=== PATIENT | male | born 1955 | race Caucasian/White ===

== ENCOUNTER 2016-11-07 07:46 | Inpatient (IN) | payer BC, OTHER ==
--- NOTE | 2016-11-07 07:55 | PDOC ---
History of Present Illness - General Chief Complaint: Shortness of Breath Stated Complaint: SOB Time Seen by Provider: 11/07/16 07:55 History Source: Patient Exam Limitations: No Limitations - History of Present Illness Initial Comments: 11/07/16 07:55 CHIEF COMPLAINT: Shortness of breath HISTORY OF PRESENT ILLNESS: This is a 61-year-old male with a history of atrial fibrillation (on Xarelto), hypertension, szh-yxoqcqq-mnobpbony diabetes, and prior Vfib arrest. He denies history of CHF, but is taking Lasix 40mg bid and has an AICD. He presents ambulatory to the ED with shortness of breath. He reports that he has been sick with cough and "cold" for one week. This morning, he felt acutely more short of breath at rest. He has been unable to lay flat. He denies chest pain. Vital signs on arrival are notable for RR 30, BP 188/133, HR 100, SpO2 82% on RA. PCP was formerly Dr. Alvarado and professor of visual arts was Dr. Martino; he reports that he can no longer see them because his insurance changed and does not currently follow with anyone. Patient is a nonsmoker. REVIEW OF SYSTEMS: GENERAL/CONSTITUTIONAL: Chills, malaise. No weakness. No weight change. HEAD, EYES, EARS, NOSE AND THROAT: No change in vision. No ear pain or discharge. No sore throat. CARDIOVASCULAR: No chest pain or palpitations. RESPIRATORY: See HPI. GASTROINTESTINAL: No nausea, vomiting, diarrhea or constipation. GENITOURINARY: No dysuria, frequency, or change in urination. MUSCULOSKELETAL: No joint or muscle swelling or pain. No neck or back pain. SKIN: No rash or easy bruising. NEUROLOGIC: No headache, vertigo, loss of consciousness, or loss of sensation. PSYCHIATRIC: No depression or anxiety. ENDOCRINE: Increased thirst. No abnormal weight change. HEMATOLOGIC/LYMPHATIC: No anemia, easy bleeding, or history of blood clots. ALLERGIC/IMMUNOLOGIC: No hives or skin allergy. No latex allergy. PHYSICAL EXAM: GENERAL: The patient is awake, alert, and fully oriented, in respiratory distress. HEAD: Normal with no signs of trauma. ENT: Pupils equal, round and reactive to light, extraocular movements intact, sclera anicteric, conjunctiva clear. Neck supple. LUNGS: Rales to mid-lung pace. Tachypneic, speaking half sentences. Using accessory muscles. CV: Tachycardic, irregular rhythm. S1/S2, no MRG. Cap refill < 2 sec. ABDOMEN: Soft, non-distended, non-tender. EXTREMITIES: Normal range of motion. 2+ pitting LE edema bilaterally. NEUROLOGICAL: Normal speech. CN II-XII grossly intact. PSYCH: Normal mood, normal affect. SKIN: Warm, dry, normal turgor, no rashes or lesions noted. Past History - Past Medical History Allergies/Adverse Reactions: Allergies Allergy/AdvReac Type Severity Reaction Status Date / Time No Known Allergies Allergy Verified 11/07/16 07:51 Cardiac Disorders: Yes (A FIB) Diabetes: Yes HTN: Yes - Surgical History Abdominal Surgery: Yes (HERNIA) Cardiac Surgery: Yes (DEFIBRILLATOR) - Psycho/Social/Smoking Cessation Hx Suicidal Ideation: No Smoking History: Never smoked Hx Alcohol Use: No Drug/Substance Use Hx: No *Physical Exam - Vital Signs Last Vital Signs Temp Pulse Resp BP Pulse Ox 97.5 F L 100 H 20 188/133 11/07/16 07:49 11/07/16 07:49 11/07/16 07:49 11/07/16 07:49 ED Treatment Course - LABORATORY CBC & Chemistry Diagram: 11/07/16 08:20 11/07/16 08:20 Medical Decision Making - Medical Decision Making 11/07/16 08:34 A/P: 61 year old male in respiratory distress. Suspect decompensated CHF, possible underlying URI. Low suspicion for PE as patient is on Xarelto and taking it as prescribed. 1. Placed on 4L O2 via nasal cannula with no improvement; now on NRB with SpO2 94%. May need NIPPV if not improving. 2. Stat EKG obtained showing Afib with RVR at 133bpm; will give Cardizem 5mg IVP , additional doses as needed 3. Stat portable CXR obtained showing cardiomeglay and extensive pulmonary vascular congestion; nitro 1" paste applied, 40mg Lasix IVP given (patient took 40mg po this morning) 4. Cardiac labs 5. Flu swab 6. Rectal temp 11/07/16 08:42 WBC 12.8 Flu neg Trop <0.02 BNP 2623 Afebrile rectally Patient is feeling much better; has diuresed 750 mL. Resp rate 22, speaking in full sentences, satting 100% on NRB. Will request tele admission. Discussed with Dr. Alvarado and she is no longer able to follow him; will request service admission. Discussed with Dr. Singh who will follow the patient. *DC/Admit/Observation/Transfer Diagnosis at time of Disposition: Respiratory decompensation Acute exacerbation of CHF (congestive heart failure) Qualifiers: Congestive heart failure type: unspecified congestive heart failure type Qualified Code(s): I50.9 - Heart failure, unspecified - Discharge Dispostion Admit: Yes
[2016-11-07 07:56] VITALS: BMI 48.8
[2016-11-07] MEDS ORDERED: FUROSEMIDE 40 MG/4 ML INJECTABLE VIAL IVPUSH ONE (08:20)
[2016-11-07] MEDS ORDERED: FUROSEMIDE 40 MG/4 ML INJECTABLE VIAL ONE (08:24)
[2016-11-07] MEDS ORDERED: dilTIAZem HCL 50 MG/10 ML - 10 ML VIAL IVPUSH ONE (08:25)
[2016-11-07] MEDS ORDERED: NITROGLYCERIN 2% OINTMENT - 1GM PACKET TD ONE (08:26)
[2016-11-07] MEDS ORDERED: dilTIAZem HCL 125 MG/25 ML - 25 ML VIAL ONE (08:27)
[2016-11-07 08:30] LABS: BASOPHIL 0.6 % (0-2.0); EOSINOPHIL 0.6 % (0-4.5); MCH 29.6 pg (25.7-33.7); MCHC 32.3 g/dl (32.0-35.9); MEAN CELL VOLUME 91.7 fl (80-96); MEAN PLT VOLUME 8.8 fl (7.5-11.1); NEUTROPHILS 84.5 % (42.8-82.8); PLATELET COUNT 183 K/MM3 (134-434); RDW 16.4 % (11.9-15.9); WHITE BLOOD COUNT 12.8 K/mm3 (4.0-10.0)
[2016-11-07 08:45] LABS: INR 1.75 (0.82-1.09); PROTHROMBIN TIME (PATIENT) 19.5 SEC (9.98-11.88)
--- NOTE | 2016-11-07 08:47 | EKG ---
Test Reason : Blood Pressure : / mmHG Vent. Rate : 133 BPM Atrial Rate : 131 BPM P-R Int : 000 ms QRS Dur : 112 ms QT Int : 338 ms P-R-T Axes : 000 -10 009 degrees QTc Int : 503 ms POOR DATA QUALITY, INTERPRETATION MAY BE ADVERSELY AFFECTED ATRIAL FIBRILLATION WITH RAPID VENTRICULAR RESPONSE WITH PREMATURE VENTRICULAR OR ABERRANTLY CONDUCTED COMPLEXES POSSIBLE ANTERIOR INFARCT , AGE UNDETERMINED ABNORMAL ECG NO PREVIOUS ECGS AVAILABLE Confirmed by DAGOBERTO BUENO, PANCHO ([id number]) on 11/07/2016 8:47:14 AM Referred By: Confirmed By:PANCHO ARENAS MD
--- NOTE | 2016-11-07 08:54 | PDOC ---
*Physical Exam - Vital Signs Last Vital Signs Temp Pulse Resp BP Pulse Ox 97.5 F L 100 H 20 188/133 82 L 11/07/16 07:49 11/07/16 07:49 11/07/16 07:49 11/07/16 07:49 11/07/16 07:49 - Physical Exam Comments: 11/07/16 08:52 MIDLEVEL NOTE Pt seen by Midlevel Provider under my direct supervision. Pt interviewed and examined. Ancillary studies reviewed. I agree with plan as outlined by Midlevel Provider. This is a 61-year-old male with a history of atrial fibrillation (on Xarelto), hypertension, morbid obesity, wip-ulybukw-jkmptuzlj diabetes. He denies history of CHF, but is taking Lasix 40mg bid and has an AICD Patient arrives in respiratory distress, diaphoretic, atrial fibrillation with a rapid ventricular response EKG Atrial fibrillation with rapid ventricular response 130 to 135 Nonspecific intraventricular conduction delay with a QRS duration of 112 Prolonged QT with a QTC of 503 There is poor R wave progression across the anterior precordium There are other diffuse nonspecific ST-T wave abnormalities There is no old EKG available for comparison To my exam Patient arrives diaphoretic and in respiratory distress He is on 100% nonrebreather There are diffuse rales in all lung pace Heart is irregularly irregular with a ventricular response of 130s There is 3-4+ pitting pedal edema bilaterally Patient was given IV Lasix, nitroglycerin paste, and diltiazem for rate control Starting to feel a little better at this time Chest l-env-buauwayy heart, severe CHF 11/07/16 10:06 Laboratory Results - last 24 hr 11/07/16 11/07/16 11/07/16 08:20 08:20 08:20 WBC 12.8 H RBC 5.26 Hgb 15.6 Hct 48.2 MCV 91.7 MCHC 32.3 RDW 16.4 H Plt Count 183 MPV 8.8 Neutrophils % 84.5 H Lymphocytes % 8.6 Monocytes % 5.7 Eosinophils % 0.6 Basophils % 0.6 INR 1.75 H Sodium 142 Potassium 4.2 Chloride 104 Carbon Dioxide 26 Anion Gap 12 BUN 24 H Creatinine 1.0 Creat Clearance w eGFR > 60 Random Glucose 205 H Calcium 9.0 Total Bilirubin 0.7 AST 31 ALT 50 Alkaline Phosphatase 70 Creatine Kinase 77 Troponin I 0.02 B-Natriuretic Peptide 2623.96 H Total Protein 7.1 Albumin 3.8 Impression- Acute CHF with respiratory decompensation, atrial fibrillation with rapid ventricular response ED Treatment Course - LABORATORY CBC & Chemistry Diagram: 11/08/16 05:35 11/08/16 05:35 - ADDITIONAL ORDERS Additional order review: 11/07/16 08:00 Influenza Types A,B Antigen (ELIZA) - Final Nasopharyngeal Swab - Final 11/07/16 08:20 RBC 5.26 MCV 91.7 MCHC 32.3 RDW 16.4 H MPV 8.8 Neutrophils % 84.5 H Lymphocytes % 8.6 Monocytes % 5.7 Eosinophils % 0.6 Basophils % 0.6 - Medications Given in the ED: ED Medications Discontinued Medications Generic Name Dose Route Start Last Admin Trade Name Freq PRN Reason Stop Dose Admin Diltiazem HCl 5 mg 11/07/16 08:25 11/07/16 08:37 Cardizem Injection - IVPUSH 11/07/16 08:26 5 mg ONCE ONE Administration Furosemide 40 mg 11/07/16 08:20 11/07/16 08:37 Lasix Injection - IVPUSH 11/07/16 08:21 40 mg ONCE ONE Administration Nitroglycerin 1 inch 11/07/16 08:26 11/07/16 08:37 Nitro-Bid 2% Paste - TD 11/07/16 08:27 1 inch ONCE ONE Administration *DC/Admit/Observation/Transfer Diagnosis at time of Disposition: Respiratory decompensation, Atrial fibrillation with RVR Acute exacerbation of CHF (congestive heart failure) Qualifiers: Congestive heart failure type: unspecified congestive heart failure type Qualified Code(s): I50.9 - Heart failure, unspecified - Discharge Dispostion Admit: Yes
[2016-11-07 08:55] LABS: ALBUMIN 3.8 g/dl (3.4-5.0); ANION GAP 12 (8-16); BILIRUBIN,TOTAL 0.7 mg/dL (0.2-1.0); CO2 26 mmol/L (21-32); GLUCOSE,RANDOM 205 mg/dL (74-106); SGOT/AST 31 U/L (15-37); SGPT/ALT 50 U/L (12-78); TOT PROT 7.1 g/dl (6.4-8.2)
[2016-11-07 08:58] LABS: ALK PHOS 70 U/L (45-117); TROPONIN I 0.02 ng/ml (0.00-0.05)
--- NOTE | 2016-11-07 09:30 | HP ---
CHIEF COMPLAINT: Shortness of breath HISTORY OF PRESENT ILLNESS: This is a 61-year-old male with PMHx of atrial fibrillation (on Xarelto), HTN, ufo-ueeosvh-mjtpvtfft diabetes, and prior Vfib arrest s/p AICD 2 years ago.He denies having any history of CHF but patient is on Lasix 40mg bid at home. He started having symptoms last night where he could not lie down flat , at 4am he fell asleep for 2 hours around 6 am when he woke up ,felt short of breath, and has been drinking lots of water and had salty food at home .He presents ambulatory to the ED with shortness of breath. And also reports that he has been sick with cough and "cold" for one week. He has been unable to lay flat. He denies chest pain. Uses cpap at home since has hx of sleep apnea. CABRERA and at rest. PCP was formerly Dr. Alvarado and master scheduler was Dr. Martino; he reports that he can no longer see them because his insurance changed and does not currently follow with anyone. ER course was notable for: (1)Given IV cardizem (2)Given Lasix 40mg IV (3)82% on Room air Past Medical History Allergies/Adverse Reactions: Allergies Allergy/AdvReac Type Severity Reaction Status Date / Time No Known Allergies Allergy Verified 11/07/16 07:51 Cardiac Disorders: Yes (A FIB) Diabetes: Yes HTN: Yes - Surgical History Abdominal Surgery: Yes (HERNIA) Cardiac Surgery: Yes (DEFIBRILLATOR) - Psycho/Social/Smoking Cessation Hx Suicidal Ideation: No Smoking History: Never smoked Hx Alcohol Use: No Drug/Substance Use Hx: No Family History: No family hx of any disease HOME MEDICATIONS: Medication Instructions Recorded Diltiazem Cd [Cardizem Cd -] 180 mg PO DAILY 11/07/16 Empagliflozin [Jardiance] 10 mg PO DAILY 11/07/16 Exenatide Microspheres [Bydureon] 2 mg SQ Q7D 11/07/16 Furosemide [Lasix] 40 mg PO BID 11/07/16 Magnesium Oxide [Magnesium] 400 mg PO DAILY 11/07/16 Metformin HCl [Metformin HCl ER] 1,000 mg PO BID 11/07/16 Metoprolol Succinate [Toprol Xl] 100 mg PO BID 11/07/16 Olmesartan Medoxomil [Benicar (Nf)] 40 mg PO DAILY 11/07/16 Potassium Chloride [K-Dur -] 10 meq PO BID 11/07/16 Rivaroxaban [Xarelto -] 20 mg PO DAILY 11/07/16 REVIEW OF SYSTEMS CONSTITUTIONAL: Absent: fever, chills, diaphoresis, generalized weakness, malaise, loss of appetite, weight change HEENT: Absent: rhinorrhea, nasal congestion, throat pain, throat swelling, difficulty swallowing, mouth swelling, ear pain, eye pain, visual changes CARDIOVASCULAR: Absent: chest pain, syncope, palpitations, irregular heart rate , lightheadedness, peripheral edema RESPIRATORY: shortness of breath, dyspnea with exertion, orthopnea, Absent: cough, wheezing, stridor, hemoptysis GASTROINTESTINAL:Absent: abdominal pain, abdominal distension, nausea, vomiting , diarrhea, constipation, melena, hematochezia GENITOURINARY: Absent: dysuria, frequency, urgency, hesitancy, hematuria, flank pain, genital pain MUSCULOSKELETAL: Absent: myalgia, arthralgia, joint swelling, back pain, neck pain SKIN: Absent: rash, itching, pallor HEMATOLOGIC/IMMUNOLOGIC: Absent: easy bleeding, easy bruising, lymphadenopathy, frequent infections ENDOCRINE:Absent: unexplained weight gain, unexplained weight loss, heat intolerance, cold intolerance NEUROLOGIC: Absent: headache, focal weakness or paresthesias, dizziness, unsteady gait, seizure, mental status changes, bladder or bowel incontinence PSYCHIATRIC: Absent: anxiety, depression, suicidal or homicidal ideation, hallucinations. EXTREMITY: Lower extremity edema PHYSICAL EXAMINATION Vital Signs - 24 hr 11/07/16 07:49 Temperature 97.5 F L Pulse Rate 100 H Respiratory 20 Rate Blood Pressure 188/133 O2 Sat by Pulse 82 L Oximetry (%) GENERAL: Awake, alert, and fully oriented, in no acute distress. HEAD: Normal with no signs of trauma. EYES: Pupils equal, round and reactive to light, extraocular movements intact, sclera anicteric, conjunctiva clear. No lid lag. EARS, NOSE, THROAT: Ears normal, nares patent, oropharynx clear without exudates. Moist mucous membranes. NECK: Normal range of motion, supple without lymphadenopathy, JVD, or masses. LUNGS: decereased Breath sounds at the basis otherwise clear to auscultation bilaterally. No wheezes, and no crackles. No accessory muscle use. HEART: Irregularly- Irregular , rate of 100 , normal S1 and S2 without murmur , rub or gallop. ABDOMEN: Soft, nontender, not distended, normoactive bowel sounds, no guarding, no rebound, no masses. No hepatomegaly or splenomegaly. MUSCULOSKELETAL: Normal range of motion at all joints. No bony deformities or tenderness. No CVA tenderness. UPPER EXTREMITIES: 2+ pulses, warm, well-perfused. No cyanosis. No clubbing. Cap refill <2 seconds. No peripheral edema. LOWER EXTREMITIES: 2+ pulses, warm, well-perfused. No calf tenderness. positive for edema. NEUROLOGICAL: Cranial nerves II-XII intact. Normal speech. Normal gait. PSYCHIATRIC: Cooperative. Good eye contact. Appropriate mood and affect. SKIN: Warm, dry, normal turgor, no rashes or lesions noted. Laboratory Results - last 24 hr 11/07/16 11/07/16 11/07/16 08:20 08:20 08:20 WBC 12.8 H RBC 5.26 Hgb 15.6 Hct 48.2 MCV 91.7 MCHC 32.3 RDW 16.4 H Plt Count 183 MPV 8.8 Neutrophils % 84.5 H Lymphocytes % 8.6 Monocytes % 5.7 Eosinophils % 0.6 Basophils % 0.6 INR 1.75 H Sodium 142 Potassium 4.2 Chloride 104 Carbon Dioxide 26 Anion Gap 12 BUN 24 H Creatinine 1.0 Creat Clearance w eGFR > 60 Random Glucose 205 H Calcium 9.0 Total Bilirubin 0.7 AST 31 ALT 50 Alkaline Phosphatase 70 Creatine Kinase 77 Troponin I 0.02 B-Natriuretic Peptide 2623.96 H Total Protein 7.1 Albumin 3.8 EKG: Afib with RVR at 133bpm Chest z-dle-roupgbwa heart, Pulmonary edema ASSESSMENT/PLAN: Patient is a 61 year old male presented to ED. in acute respiratory distress, with hx of URI. Presented with Acute congestive Heart failure , patient was found to be in AVR with rate of 133 given IV cardizam and patient is on Xarelto at home for Afib. # Acute CHF exacerbation will get echo, cardio consult , CE q8x2 more set, EKG in am. LAsix 40mg IV bid. Admit to telemetry. # Acute Hypoxia , patient is hypoxic off oxygen, will place on 4 liter oxygen , if patient doesn't improve might need CTA of the chest, doubt PE, will get duplex of LOwer extremities r/o DVT # Afib with RVR on cardizem and BB will continue, will get TSH level as well. # T2DM Sliding scale with coverage. #Lower extremity edema B/L on IV lasix , duplex of LE r/o DVT DVT px; Xarelto Problem List - Problem (1) Acute exacerbation of CHF (congestive heart failure) Code(s): I50.9 - HEART FAILURE, UNSPECIFIED Qualifiers: Congestive heart failure type: unspecified congestive heart failure type Qualified Code(s): I50.9 - Heart failure, unspecified (2) Respiratory decompensation Code(s): J98.9 - RESPIRATORY DISORDER, UNSPECIFIED (3) Atrial fibrillation with RVR Code(s): I48.91 - UNSPECIFIED ATRIAL FIBRILLATION (4) Hypoxia Code(s): R09.02 - HYPOXEMIA (5) T2DM (type 2 diabetes mellitus) Code(s): E11.9 - TYPE 2 DIABETES MELLITUS WITHOUT COMPLICATIONS Visit type - Emergency Visit Emergency Visit: Yes ED Registration Date: 11/07/16 Care time: The patient presented to the Emergency Department on the above date and was hospitalized for further evaluation of their emergent condition. - New Patient This patient is new to me today: Yes Date on this admission: 11/07/16 - Critical Care Critical Care patient: No
[2016-11-07] MEDS: FUROSEMIDE 40 MG/4 ML INJECTABLE VIAL IVPUSH SCH (14:12)
[2016-11-07 16:02] LABS: TROPONIN I 0.02 ng/ml (0.00-0.05)
[2016-11-07] MEDS: INSULIN SLIDING SCALE (NOVOLOG) 1 VIAL SQ SCH (21:04)
[2016-11-07] MEDS: RIVAROXABAN 20 MG TABLET PO SCH (21:04)
[2016-11-07] MEDS: POTASSIUM CHLORIDE TABS 10 MEQ TABLET.ER (FP) PO SCH (21:04)
[2016-11-07] MEDS: METOPROLOL SUCCINATE 100 MG TAB.SR.24H (FP) PO SCH (21:16)
--- NOTE | 2016-11-07 23:59 | CONSULT ---
Consult Consult Specialty:: cardiology Reason for Consultation:: shortness of breath - History of Present Illness Chief Complaint: Pt denies chest pain; +dyspnea on minimal exertion. History of Present Illness: This is a 61-year-old white male with a history of atrial fibrillation (on Xarelto), hypertension, obesity, tlh-dkczdcz-dzyusdrne diabetes, and prior Vfib arrest leading to ICD implantation in 2013. He denies history of CHF, but is taking Lasix 40mg bid. He presents ambulatory to the ED with shortness of breath. He reports that he has been sick with cough and "cold" for one week. This morning, he felt acutely more short of breath at rest. He has been unable to lay flat. He denies chest pain. Vital signs on arrival are notable for RR 30, BP 188/133, HR 100, SpO2 82% on RA. - History Source History Provided By: Patient, Family Member, Medical Record Limitations to Obtaining History: No Limitations - Past Medical History Cardio/Vascular: Yes: CHF, HTN, Hyperlipdemia Pulmonary: Yes: Sleep Apnea Renal/: No: Renal Failure Heme/Onc: No: Anemia Psych: Yes: Anxiety - Past Surgical History Past Surgical History: Yes: AICD - Alcohol/Substance Use Hx Alcohol Use: No - Smoking History Smoking history: Never smoked - Social History Usual Living Arrangement: With Spouse Home Medications - Allergies Allergies/Adverse Reactions: Allergies Allergy/AdvReac Type Severity Reaction Status Date / Time No Known Allergies Allergy Verified 11/07/16 07:51 - Home Medications Home Medications: Ambulatory Orders Diltiazem Cd [Cardizem Cd -] 180 mg PO DAILY 11/07/16 Empagliflozin [Jardiance] 10 mg PO DAILY 11/07/16 Exenatide Microspheres [Bydureon] 2 mg SQ Q7D 11/07/16 Furosemide [Lasix] 40 mg PO BID 11/07/16 Magnesium Oxide [Magnesium] 400 mg PO DAILY 11/07/16 Metformin HCl [Metformin HCl ER] 1,000 mg PO BID 11/07/16 Metoprolol Succinate [Toprol Xl] 100 mg PO BID 11/07/16 Olmesartan Medoxomil [Benicar (Nf)] 40 mg PO DAILY 11/07/16 Potassium Chloride [K-Dur -] 10 meq PO BID 11/07/16 Rivaroxaban [Xarelto -] 20 mg PO DAILY 11/07/16 Family Disease History - Family Disease History Family History: Unable to Obtain Review of Systems - Review of Systems Eyes: reports: No Symptoms HENT: reports: No Symptoms Neck: reports: No Symptoms Cardiovascular: reports: Shortness of Breath Respiratory: reports: SOB on Exertion Gastrointestinal: reports: No Symptoms Genitourinary: reports: No Symptoms Breasts: reports: No Symptoms Reported Musculoskeletal: reports: Muscle Weakness Integumentary: reports: No Symptoms Neurological: reports: No Symptoms Endocrine: reports: No Symptoms Hematology/Lymphatic: reports: No Symptoms Psychiatric: reports: Anxiety - Risk Factors Known Risk Factors: Yes: Age, Diabetes Mellitus, Gender, Hypertension (obesity) , Physical Inactivity, Other Vital Signs: Vital Signs Temperature 98.4 F 11/07/16 22:54 Pulse Rate 75 11/07/16 22:54 Respiratory Rate 20 11/07/16 22:54 Blood Pressure 142/98 11/07/16 22:54 O2 Sat by Pulse Oximetry (%) 96 11/07/16 22:33 Constitutional: Yes: Anxious, Obese Eyes: Yes: WNL HENT: Yes: WNL Neck: Yes: WNL Respiratory: Yes: Diminished Gastrointestinal: Yes: Soft, Abdomen, Obese Renal/: No: Anuria Cardiovascular: Yes: Tachycardia, Pulse Irregular JVD: Yes Carotid Bruit: No PMI: Displaced Heart Sounds: Yes: S1 (varies in intensity), S2 Murmur: Yes: Systolic Murmur, Grade 2 Musculoskeletal: Yes: Muscle Weakness Extremities: Yes: Cool Edema: Yes Edema: LLE: Trace, RLE: Trace Peripheral Pulses WNL: No Peripheral Pulses: 1+ Left Doralis Pedis, 1+ Right Dorsalis Pedis Integumentary: Yes: WNL Neurological: Yes: Alert, Oriented, Weakness Psychiatric: Yes: Alert, Oriented, Other (anxiety) - Other Data Labs, Other Data: INR, PTT INR 1.75 (0.82-1.09) H 11/07/16 08:20 Troponin, BNP 11/07/16 11/07/16 14:57 19:05 Troponin I 0.02 0.03 D Troponin, BNP 11/07/16 11/07/16 14:57 19:05 Troponin I 0.02 0.03 D Prior Cardiac Procedures: Other (ICD) Imaging - Results Chest X-ray: Image Reviewed EKG: Image Reviewed (AF with rapid VR) Problem List - Problems (1) Atrial fibrillation with RVR Assessment/Plan: On diltiazem and metoprolol On Xarelto. F/u ECHO (hx mild-moderate systolic dysfunction years ago, with ? normal LVEF more recently. Code(s): I48.91 - UNSPECIFIED ATRIAL FIBRILLATION (2) T2DM (type 2 diabetes mellitus) Code(s): E11.9 - TYPE 2 DIABETES MELLITUS WITHOUT COMPLICATIONS (4) Obesity Assessment/Plan: truncal obesity. The benefits of modifying diet and losing this weight were discussed. Code(s): E66.9 - OBESITY, UNSPECIFIED (5) HTN (hypertension) Assessment/Plan: Continue present medications; f/u BP and HR serially. ECHO for LVEF, valve status; wall motion; chamber sizes. Code(s): I10 - ESSENTIAL (PRIMARY) HYPERTENSION (6) Acute on chronic diastolic CHF (congestive heart failure) Assessment/Plan: Elevated BNP; CXR with pulmonary vascular congestion; +JVD. Continue present medications. ECHO for LVEF. Daily weight, Is and Os, BUN/Cr, and electrolytes. TNI < 0.02; f/u serially. TSH. Code(s): I50.33 - ACUTE ON CHRONIC DIASTOLIC (CONGESTIVE) HEART FAILURE (7) Hyperlipidemia Assessment/Plan: f/u lipid panel. f/u TSH. Code(s): E78.5 - HYPERLIPIDEMIA, UNSPECIFIED (8) ICD (implantable cardioverter-defibrillator) battery depletion Code(s): Z45.02 - ENCNTR FOR ADJUST AND MGMT OF AUTOMATIC IMPLNTBL CARD DEFIB (9) AICD (automatic cardioverter/defibrillator) present Assessment/Plan: Pt denies feeling any shocks. F/u interrogation, if not done recently. Code(s): Z95.810 - PRESENCE OF AUTOMATIC (IMPLANTABLE) CARDIAC DEFIBRILLATOR (10) Leukocytosis Assessment/Plan: denies recent fever. F/u repeat CBC. Code(s): D72.829 - ELEVATED WHITE BLOOD CELL COUNT, UNSPECIFIED
[2016-11-08 03:26] LABS: URINE APPEARANCE CLEAR; URINE BILIRUBIN NEGATIVE (NEGATIVE); URINE BLOOD NEGATIVE (NEGATIVE); URINE COLOR YELLOW; URINE GLUCOSE (UA) 3+ (NEGATIVE); URINE KETONE NEGATIVE (NEGATIVE); URINE LEUK ESTERASE NEGATIVE (NEGATIVE); URINE NITRITE NEGATIVE (NEGATIVE); URINE PROTEIN NEGATIVE (NEGATIVE); URINE UROBILINOGEN NEGATIVE E.U./dl (0.2-1.0)
[2016-11-08] MEDS: FUROSEMIDE 40 MG/4 ML INJECTABLE VIAL IVPUSH SCH ×2 (06:12→13:15)
[2016-11-08] MEDS: INSULIN SLIDING SCALE (NOVOLOG) 1 VIAL SQ SCH ×4 (06:12→22:17)
[2016-11-08 07:50] LABS: BASOPHIL 0.8 % (0-2.0); EOSINOPHIL 1.6 % (0-4.5); MCH 30.1 pg (25.7-33.7); MCHC 33.1 g/dl (32.0-35.9); MEAN CELL VOLUME 91.1 fl (80-96); MEAN PLT VOLUME 8.8 fl (7.5-11.1); PLATELET COUNT 157 K/MM3 (134-434); RDW 16.4 % (11.9-15.9); WHITE BLOOD COUNT 9.7 K/mm3 (4.0-10.0)
[2016-11-08 08:16] LABS: ALBUMIN 3.8 g/dl (3.4-5.0); ANION GAP 5 (8-16); CALCIUM 8.3 mg/dL (8.5-10.1); CO2 33 mmol/L (21-32); GLUCOSE,RANDOM 102 mg/dL (74-106); MAGNESIUM 2.5 mg/dL (1.8-2.4)
[2016-11-08 08:25] LABS: ALK PHOS 63 U/L (45-117); CHOLESTEROL 144 mg/dL (50-200); CREATININE 0.8 mg/dL (0.7-1.3); LDL CHOLESTEROL (ONLY SJRH) 99 mg/dL (5-100); PHOSPHOROUS 3.8 mg/dL (2.5-4.9); SGOT/AST 28 U/L (15-37); SGPT/ALT 46 U/L (12-78); THYROID STIMULATING HORMONE 2.47 uIU/ml (0.358-3.74); TOT PROT 6.4 g/dl (6.4-8.2)
[2016-11-08] MEDS: METOPROLOL SUCCINATE 100 MG TAB.SR.24H (FP) PO SCH ×2 (09:40→22:15)
[2016-11-08] MEDS: VALSARTAN 160 MG TABLET (UD) PO SCH (09:40)
[2016-11-08] MEDS: POTASSIUM CHLORIDE TABS 10 MEQ TABLET.ER (FP) PO SCH ×2 (09:40→22:15)
--- NOTE | 2016-11-08 12:36 | PN ---
Physical Exam: SUBJECTIVE: Patient seen and examined at bedside. SOB is much improved from yesterday. Feels his legs are as swollen as they have ever been. Admits to dietary indiscretions (cold cuts, large amounts of fluids). OBJECTIVE: Vital Signs Period Temp Pulse Resp BP Sys/Lopez Pulse Ox Last 24 Hr 97.7 F-98.4 F 75-91 18-22 130-164/68-98 94-97 GENERAL: The patient is awake, alert, and fully oriented, in no acute distress. HEAD: Normal with no signs of trauma. EYES: PERRL, extraocular movements intact, sclera anicteric, conjunctiva clear. No ptosis. LUNGS: Breath sounds equal, clear to auscultation bilaterally, no wheezes, no crackles; on NC; becomes slightly SOB with speaking; no accessory muscle use HEART: Regular rate and rhythm, S1, S2 without murmur, rub or gallop. ABDOMEN: Soft, markedly obese, not tender; hypoactive bowel sounds EXTREMITIES: 4+ bilateral LE edema, skin is tense; mild venous stasis changes NEUROLOGICAL: Cranial nerves II through XII grossly intact. Normal speech, gait not observed; moves all extremities freely. Laboratory Results - last 24 hr 11/07/16 11/07/16 11/07/16 14:57 19:05 20:58 WBC RBC Hgb Hct MCV MCHC RDW Plt Count MPV Neutrophils % Lymphocytes % Monocytes % Eosinophils % Basophils % Sodium Potassium Chloride Carbon Dioxide Anion Gap BUN Creatinine Creat Clearance w eGFR POC Glucometer 116 Random Glucose Calcium Phosphorus Magnesium Total Bilirubin AST ALT Alkaline Phosphatase Creatine Kinase 72 Troponin I 0.02 0.03 D Total Protein Albumin Triglycerides Cholesterol Total LDL Cholesterol HDL Cholesterol TSH Urine Color Urine Appearance Urine pH Ur Specific [place] Urine Protein Urine Glucose (UA) Urine Ketones Urine Blood Urine Nitrite Urine Bilirubin Urine Urobilinogen Ur Leukocyte Esterase 11/07/16 11/08/16 11/08/16 22:30 05:35 05:35 WBC 9.7 RBC 4.69 Hgb 14.1 Hct 42.7 MCV 91.1 MCHC 33.1 RDW 16.4 H Plt Count 157 MPV 8.8 Neutrophils % 78.0 Lymphocytes % 12.5 D Monocytes % 7.1 Eosinophils % 1.6 D Basophils % 0.8 Sodium 144 Potassium 4.0 Chloride 106 Carbon Dioxide 33 H D Anion Gap 5 L BUN 22 H Creatinine 0.8 Creat Clearance w eGFR > 60 POC Glucometer Random Glucose 102 D Calcium 8.3 L Phosphorus 3.8 Magnesium 2.5 H Total Bilirubin 1.0 D AST 28 ALT 46 Alkaline Phosphatase 63 Creatine Kinase Troponin I Total Protein 6.4 Albumin 3.8 Triglycerides 124 Cholesterol 144 Total LDL Cholesterol 99 HDL Cholesterol 30 L TSH 2.47 Urine Color Yellow Urine Appearance Clear Urine pH 6.0 Ur Specific [place] 1.026 Urine Protein Negative Urine Glucose (UA) 3+ H Urine Ketones Negative Urine Blood Negative Urine Nitrite Negative Urine Bilirubin Negative Urine Urobilinogen Negative Ur Leukocyte Esterase Negative 11/08/16 11/08/16 05:58 11:53 WBC RBC Hgb Hct MCV MCHC RDW Plt Count MPV Neutrophils % Lymphocytes % Monocytes % Eosinophils % Basophils % Sodium Potassium Chloride Carbon Dioxide Anion Gap BUN Creatinine Creat Clearance w eGFR POC Glucometer 104 136 Random Glucose Calcium Phosphorus Magnesium Total Bilirubin AST ALT Alkaline Phosphatase Creatine Kinase Troponin I Total Protein Albumin Triglycerides Cholesterol Total LDL Cholesterol HDL Cholesterol TSH Urine Color Urine Appearance Urine pH Ur Specific [place] Urine Protein Urine Glucose (UA) Urine Ketones Urine Blood Urine Nitrite Urine Bilirubin Urine Urobilinogen Ur Leukocyte Esterase Current Medications Generic Name Dose Route Start Last Admin Trade Name Freq PRN Reason Stop Dose Admin Diltiazem HCl 180 mg 11/08/16 10:00 11/08/16 09:40 Cardizem Cd - PO 180 mg DAILY [facility] Administration Furosemide 40 mg 11/07/16 14:00 11/08/16 06:12 Lasix Injection - IVPUSH 40 mg BID@0600,1400 [facility] Administration Insulin Aspart 1 vial 11/08/16 16:30 Novolog Vial Sliding Scale - SQ ACHS [facility] Protocol Metoprolol Succinate 100 mg 11/09/16 10:00 Toprol Xl - PO DAILY [facility] Metoprolol Succinate 200 mg 11/08/16 22:00 Toprol Xl - PO DAILY [facility] Potassium Chloride 10 meq 11/07/16 22:00 11/08/16 09:40 K-Dur - PO 10 meq BID [facility] Administration Rivaroxaban 20 mg 11/07/16 17:30 11/07/16 21:04 Xarelto - PO 20 mg DAILY@1730 [facility] Administration Valsartan 320 mg 11/08/16 10:00 11/08/16 09:40 Diovan - PO 320 mg DAILY [facility] Administration ASSESSMENT/PLAN 61 year-old man with a PMH of HTN, afib on Xarelto, prior v-fib arrest s/p ICD ( 2013), diastolic heart failure, and NIDDM. Admitted for acute heart failure, afib with RVR, and hypertensive urgency. Acute on chronic diastolic heart failure --troponins neg x 3 --11/07 CXR: extensive congestive changes, fluid in the horizontal fissure; 4 + BLE edema --BNP 2623 --echo done, awaiting read --renal function is stable, continue aggressive diuresis --fluid restrict 1L, daily weights, strict I&Os --repeat CXR tomorrow; pre post tomorrow Atrial fibrillation with RVR --11/07 ECG: afib @133bpm --rate is improved today, 80-90s --continue Toprol XL, diltiazem --continue Xarelto Hypertensive emergency --BP 188/133 was on admission with decompensated heart failure; still elevated --continue Valsartan, Toprol XL, diltiazem, Lasix IV NIDDM --hold metformin --Novolog sliding scale coverage --HgbA1C ordered F/E/N Fluids: fluid restrict 1L Electrolytes: replete as indicated Nutrition: diabetic low sodium DVT prophylaxis: on Xarelto Dispo: continues to require inpatient care. Full Code. Visit type - Emergency Visit Emergency Visit: Yes ED Registration Date: 11/07/16 Care time: The patient presented to the Emergency Department on the above date and was hospitalized for further evaluation of their emergent condition. - New Patient This patient is new to me today: Yes Date on this admission: 11/08/16 - Critical Care Critical Care patient: No
--- NOTE | 2016-11-08 15:43 | PN ---
Progress Note, Physician History of Present Illness: This is a 61-year-old white male with a history of atrial fibrillation (on Xarelto), hypertension, obesity, onh-fwxyvad-[id number] diabetes, and prior Vfib arrest leading to ICD implantation in 2013. He denies history of CHF, but is taking Lasix 40mg bid. He presents ambulatory to the ED with shortness of breath. He reports that he has been sick with cough and "cold" for one week. This morning, he felt acutely more short of breath at rest. He has been unable to lay flat. He denies chest pain. Vital signs on arrival are notable for RR 30, BP 188/133, HR 100, SpO2 82% on RA. - Current Medication List Current Medications: Active Medications Diltiazem HCl (Cardizem Cd -) 180 mg PO DAILY [facility] Last Admin: 11/08/16 09:40 Dose: 180 mg Furosemide (Lasix Injection -) 40 mg IVPUSH BID@0600,1400 [facility] Last Admin: 11/08/16 13:15 Dose: 40 mg Insulin Aspart (Novolog Vial Sliding Scale -) 1 vial SQ ACHS [facility] PRN Reason: Protocol Metoprolol Succinate (Toprol Xl -) 100 mg PO DAILY [facility] Metoprolol Succinate (Toprol Xl -) 200 mg PO HS [facility] Potassium Chloride (K-Dur -) 10 meq PO BID [facility] Last Admin: 11/08/16 09:40 Dose: 10 meq Rivaroxaban (Xarelto -) 20 mg PO DAILY@1730 [facility] Last Admin: 11/07/16 21:04 Dose: 20 mg Valsartan (Diovan -) 320 mg PO DAILY [facility] Last Admin: 11/08/16 09:40 Dose: 320 mg - Objective Vital Signs: Vital Signs Temperature 97.7 F 11/08/16 10:00 Pulse Rate 96 H 11/08/16 13:20 Respiratory Rate 18 11/08/16 13:20 Blood Pressure 154/83 11/08/16 13:20 O2 Sat by Pulse Oximetry (%) 97 11/08/16 09:00 Eyes: Yes: WNL, Conjunctiva Clear, EOM Intact HENT: Yes: WNL, Atraumatic, Normocephalic Neck: Yes: WNL, Supple, Trachea Midline Cardiovascular: Yes: Pulse Irregular, S1, S2 Respiratory: Yes: WNL, Regular, CTA Bilaterally Gastrointestinal: Yes: WNL, Normal Bowel Sounds Genitourinary: Yes: WNL Musculoskeletal: Yes: WNL Extremities: Yes: WNL Edema: Yes Integumentary: Yes: WNL Neurological: Yes: WNL, Alert, Oriented ...Motor Strength: WNL Psychiatric: Yes: WNL Labs: CBC, BMP 11/08/16 05:35 11/08/16 05:35 INR, PTT INR 1.75 (0.82-1.09) H 11/07/16 08:20 Assessment/Plan Problems (1) Atrial fibrillation with RVR Assessment/Plan: On diltiazem and metoprolol On Xarelto. F/u ECHO (hx mild-moderate systolic dysfunction years ago, with ? normal LVEF more recently. Code(s): I48.91 - UNSPECIFIED ATRIAL FIBRILLATION (2) T2DM (type 2 diabetes mellitus) Code(s): E11.9 - TYPE 2 DIABETES MELLITUS WITHOUT COMPLICATIONS (4) Obesity Assessment/Plan: truncal obesity. The benefits of modifying diet and losing this weight were discussed. Code(s): E66.9 - OBESITY, UNSPECIFIED (5) HTN (hypertension) Assessment/Plan: Continue present medications; f/u BP and HR serially. ECHO for LVEF, valve status; wall motion; chamber sizes. Code(s): I10 - ESSENTIAL (PRIMARY) HYPERTENSION (6) Acute on chronic diastolic CHF (congestive heart failure) Assessment/Plan: Elevated BNP; CXR with pulmonary vascular congestion; +JVD. Continue present medications. ECHO for LVEF. Daily weight, Is and Os, BUN/Cr, and electrolytes. TNI < 0.02; f/u serially. TSH. Code(s): I50.33 - ACUTE ON CHRONIC DIASTOLIC (CONGESTIVE) HEART FAILURE (7) Hyperlipidemia Assessment/Plan: f/u lipid panel. f/u TSH. Code(s): E78.5 - HYPERLIPIDEMIA, UNSPECIFIED (8) ICD (implantable cardioverter-defibrillator) battery depletion Code(s): Z45.02 - ENCNTR FOR ADJUST AND MGMT OF AUTOMATIC IMPLNTBL CARD DEFIB (9) AICD (automatic cardioverter/defibrillator) present Assessment/Plan: Pt denies feeling any shocks. F/u interrogation, if not done recently. Code(s): Z95.810 - PRESENCE OF AUTOMATIC (IMPLANTABLE) CARDIAC DEFIBRILLATOR (10) Leukocytosis Assessment/Plan: denies recent fever. F/u repeat CBC. Code(s): D72.829 - ELEVATED WHITE BLOOD CELL COUNT, UNSPECIFIED
[2016-11-08] MEDS: RIVAROXABAN 20 MG TABLET PO SCH (17:21)
[2016-11-08] MEDS ORDERED: METOPROLOL TARTRATE 50 MG TABLET (FP) PO SCH (22:00)
[2016-11-09] MEDS: INSULIN SLIDING SCALE (NOVOLOG) 1 VIAL SQ SCH ×4 (06:21→21:20)
[2016-11-09] MEDS: FUROSEMIDE 40 MG/4 ML INJECTABLE VIAL IVPUSH SCH ×2 (06:26→14:58)
--- NOTE | 2016-11-09 07:47 | PN ---
Physical Exam: SUBJECTIVE: Patient seen and examined at bedside. OBJECTIVE: Vital Signs Period Temp Pulse Resp BP Sys/Lopez Pulse Ox Last 24 Hr 97.7 F-98.8 F 77-101 18-20 138-161/72-98 97-97 GENERAL: The patient is awake, alert, and fully oriented, in no acute distress. HEAD: Normal with no signs of trauma. EYES: PERRL, extraocular movements intact, sclera anicteric, conjunctiva clear. No ptosis. LUNGS: Breath sounds equal, clear to auscultation bilaterally, no wheezes, no crackles; on NC; no accessory muscle use HEART: Regular rate and rhythm, S1, S2 without murmur, rub or gallop. ABDOMEN: Soft, markedly obese, not tender; hypoactive bowel sounds EXTREMITIES: 4+ bilateral LE edema, skin is tense; mild venous stasis changes NEUROLOGICAL: Cranial nerves II through XII grossly intact. Normal speech, gait not observed; moves all extremities freely. Laboratory Results - last 24 hr 11/08/16 11/08/16 11/08/16 05:35 05:35 11:53 WBC 9.7 RBC 4.69 Hgb 14.1 Hct 42.7 MCV 91.1 MCHC 33.1 RDW 16.4 H Plt Count 157 MPV 8.8 Neutrophils % 78.0 Lymphocytes % 12.5 D Monocytes % 7.1 Eosinophils % 1.6 D Basophils % 0.8 Sodium 144 Potassium 4.0 Chloride 106 Carbon Dioxide 33 H D Anion Gap 5 L BUN 22 H Creatinine 0.8 Creat Clearance w eGFR > 60 POC Glucometer 136 Random Glucose 102 D Calcium 8.3 L Phosphorus 3.8 Magnesium 2.5 H Total Bilirubin 1.0 D AST 28 ALT 46 Alkaline Phosphatase 63 Total Protein 6.4 Albumin 3.8 Triglycerides 124 Cholesterol 144 Total LDL Cholesterol 99 HDL Cholesterol 30 L TSH 2.47 11/08/16 11/08/16 11/09/16 17:06 21:49 06:06 WBC RBC Hgb Hct MCV MCHC RDW Plt Count MPV Neutrophils % Lymphocytes % Monocytes % Eosinophils % Basophils % Sodium Potassium Chloride Carbon Dioxide Anion Gap BUN Creatinine Creat Clearance w eGFR POC Glucometer 115 99 122 Random Glucose Calcium Phosphorus Magnesium Total Bilirubin AST ALT Alkaline Phosphatase Total Protein Albumin Triglycerides Cholesterol Total LDL Cholesterol HDL Cholesterol TSH Current Medications Generic Name Dose Route Start Last Admin Trade Name Freq PRN Reason Stop Dose Admin Furosemide 40 mg 11/07/16 14:00 11/09/16 06:26 Lasix Injection - IVPUSH 40 mg BID@0600,1400 [facility] Administration Insulin Aspart 1 vial 11/08/16 16:30 11/09/16 11:55 Novolog Vial Sliding Scale - SQ Not Given ACHS [facility] Protocol Metoprolol Succinate 100 mg 11/09/16 10:00 11/09/16 09:54 Toprol Xl - PO 100 mg DAILY [facility] Administration Metoprolol Succinate 200 mg 11/08/16 22:00 11/08/16 22:15 Toprol Xl - PO 200 mg HS [facility] Administration Potassium Chloride 10 meq 11/07/16 22:00 11/09/16 09:54 K-Dur - PO 10 meq BID [facility] Administration Potassium Chloride 40 meq 11/09/16 12:00 11/09/16 12:09 K-Dur - PO 11/09/16 18:01 40 meq Q6H [facility] Administration Rivaroxaban 20 mg 11/07/16 17:30 11/08/16 17:21 Xarelto - PO 20 mg DAILY@1730 [facility] Administration Spironolactone 25 mg 11/09/16 10:00 11/09/16 09:54 Aldactone - PO 25 mg DAILY [facility] Administration Valsartan 320 mg 11/08/16 10:00 11/09/16 09:54 Diovan - PO 320 mg DAILY [facility] Administration ASSESSMENT/PLAN 61 year-old man with a PMH of HTN, afib on Xarelto, prior v-fib arrest s/p ICD ( 2013), diastolic heart failure, and NIDDM. Admitted for acute heart failure, afib with RVR, and hypertensive urgency. Acute on chronic systolic and diastolic heart failure --11/08 Echo: LV moderately reduced; +RWMA: moderate septal hypokinesis; moderate anterior wall hypokinesis; mild to moderate apical wall hypokinesis; RV normal; LAE; moderate to severe MR; mild TR; RVSP 35mmHg; pacemaker lead in RV --11/08 CXR marked improvement in congestion --renal function is stable, continue aggressive diuresis, Lasix and spironolactone --fluid restrict 1L, daily weights, strict I&Os Atrial fibrillation with RVR --rate is improved today, 70-80s --continue Toprol XL; diltiazem d/c'd today by cardiology --continue Xarelto Hypertensive emergency, resolved Hypertension --BP better controlled --continue Valsartan, Toprol XL, Lasix IV NIDDM --continue metformin --Novolog sliding scale coverage --HgbA1C ordered F/E/N Fluids: fluid restrict 1L Electrolytes: replete as indicated Nutrition: diabetic low sodium DVT prophylaxis: on Xarelto Dispo: continues to require inpatient care. Full Code. Visit type - Emergency Visit Emergency Visit: Yes ED Registration Date: 11/07/16 Care time: The patient presented to the Emergency Department on the above date and was hospitalized for further evaluation of their emergent condition. - New Patient This patient is new to me today: No - Critical Care Critical Care patient: No
[2016-11-09 08:31] LABS: ALBUMIN 3.6 g/dl (3.4-5.0); ANION GAP 7 (8-16); CO2 30 mmol/L (21-32); CREATININE 0.8 mg/dL (0.7-1.3); GLUCOSE,RANDOM 100 mg/dL (74-106); MAGNESIUM 2.5 mg/dL (1.8-2.4); SGOT/AST 29 U/L (15-37); SGPT/ALT 45 U/L (12-78); TOT PROT 6.3 g/dl (6.4-8.2)
[2016-11-09 08:32] LABS: ALK PHOS 64 U/L (45-117)
[2016-11-09 09:48] LABS: BASOPHIL 0.7 % (0-2.0); EOSINOPHIL 1.5 % (0-4.5); MCH 30.4 pg (25.7-33.7); MCHC 33.2 g/dl (32.0-35.9); MEAN CELL VOLUME 91.5 fl (80-96); MEAN PLT VOLUME 8.6 fl (7.5-11.1); NEUTROPHILS 75.3 % (42.8-82.8); PLATELET COUNT 144 K/MM3 (134-434); RDW 16.3 % (11.9-15.9)
[2016-11-09] MEDS: SPIRONOLACTONE 25 MG TABLET (FP) PO SCH (09:54)
[2016-11-09] MEDS: METOPROLOL SUCCINATE 100 MG TAB.SR.24H (FP) PO SCH ×2 (09:54→21:14)
[2016-11-09] MEDS: POTASSIUM CHLORIDE TABS 10 MEQ TABLET.ER (FP) PO SCH ×2 (09:54→21:13)
[2016-11-09] MEDS: VALSARTAN 160 MG TABLET (UD) PO SCH (09:54)
--- NOTE | 2016-11-09 11:29 | PN ---
Progress Note, Physician Chief Complaint: Pt walking slowly in hallway without dyspnea or chest pain. Mild decrease in bilateral leg swelling. History of Present Illness: This is a 61-year-old white male with a history of atrial fibrillation (on Xarelto), hypertension, obesity, oqf-cuuxqln-lxhsxefwb diabetes, and prior Vfib arrest leading to ICD implantation in 2013. He denies history of CHF, but is taking Lasix 40mg bid. He presents ambulatory to the ED with shortness of breath. He reports that he has been sick with cough and "cold" for one week. This morning, he felt acutely more short of breath at rest. He has been unable to lay flat. He denies chest pain. Vital signs on arrival are notable for RR 30, BP 188/133, HR 100, SpO2 82% on RA. - Current Medication List Current Medications: Active Medications Diltiazem HCl (Cardizem Cd -) 180 mg PO DAILY [facility] Last Admin: 11/09/16 09:54 Dose: 180 mg Furosemide (Lasix Injection -) 40 mg IVPUSH BID@0600,1400 [facility] Last Admin: 11/09/16 06:26 Dose: 40 mg Insulin Aspart (Novolog Vial Sliding Scale -) 1 vial SQ ACHS [facility] PRN Reason: Protocol Last Admin: 11/09/16 06:21 Dose: Not Given Metoprolol Succinate (Toprol Xl -) 100 mg PO DAILY [facility] Last Admin: 11/09/16 09:54 Dose: 100 mg Metoprolol Succinate (Toprol Xl -) 200 mg PO HS [facility] Last Admin: 11/08/16 22:15 Dose: 200 mg Potassium Chloride (K-Dur -) 10 meq PO BID [facility] Last Admin: 11/09/16 09:54 Dose: 10 meq Potassium Chloride (K-Dur -) 40 meq PO Q6H [facility] Stop: 11/09/16 17:01 Rivaroxaban (Xarelto -) 20 mg PO DAILY@1730 [facility] Last Admin: 11/08/16 17:21 Dose: 20 mg Spironolactone (Aldactone -) 25 mg PO DAILY [facility] Last Admin: 11/09/16 09:54 Dose: 25 mg Valsartan (Diovan -) 320 mg PO DAILY [facility] Last Admin: 11/09/16 09:54 Dose: 320 mg - Objective Vital Signs: Vital Signs Temperature 98.1 F 11/09/16 09:08 Pulse Rate 85 11/09/16 09:08 Respiratory Rate 18 11/09/16 09:08 Blood Pressure 133/59 11/09/16 09:08 O2 Sat by Pulse Oximetry (%) 96 11/09/16 08:00 Constitutional: Yes: Calm Eyes: Yes: WNL HENT: Yes: WNL Neck: Yes: WNL Cardiovascular: Yes: Regular Rate and Rhythm Respiratory: Yes: Diminished Gastrointestinal: Yes: Soft, Abdomen, Obese ...Rectal Exam: Yes: Deferred Genitourinary: No: Anuria Breast(s): Yes: WNL Musculoskeletal: Yes: Joint Stiffness, Muscle Weakness Extremities: Yes: Cool Edema: Yes Edema: LLE: 2+, RLE: 2+ Peripheral Pulses WNL: No Peripheral Pulses: Left Doralis Pedis: 1+, Right Dorsalis Pedis: 1+ Integumentary: Yes: Venous Stasis Changes, Other (patchy maculopapular bilateral LE rash) Psychiatric: Yes: Alert, Oriented Labs: CBC, BMP 11/09/16 05:35 11/09/16 05:35 INR, PTT INR 1.75 (0.82-1.09) H 11/07/16 08:20 Abnormal Lab Results 11/09/16 11/09/16 11/09/16 05:35 05:35 05:35 RDW 16.3 H Potassium 3.3 L Chloride 108 H Anion Gap 7 L Hemoglobin A1c % 6.7 H Calcium 8.0 L Magnesium 2.5 H Total Protein 6.3 L - ....Imaging Chest X-ray: Image Reviewed (significantly improved pulmonary vascular congestion) Other: Image Reviewed (telemetry: NSR) Problem List - Problems (1) Atrial fibrillation with RVR Assessment/Plan: On diltiazem and metoprolol On Xarelto. ECHO: moderate LV dysfunction; will discontinue diltiazem. F/u HR and BP. ICD interrogation. Code(s): I48.91 - UNSPECIFIED ATRIAL FIBRILLATION (2) T2DM (type 2 diabetes mellitus) Code(s): E11.9 - TYPE 2 DIABETES MELLITUS WITHOUT COMPLICATIONS (4) Obesity Assessment/Plan: truncal obesity. The benefits of modifying diet and losing weight were discussed. Code(s): E66.9 - OBESITY, UNSPECIFIED (5) HTN (hypertension) Assessment/Plan: ECHO: moderately reduced LVEF. Stopped diltiazem; f/u HR and BP. Code(s): I10 - ESSENTIAL (PRIMARY) HYPERTENSION (6) Hyperlipidemia Assessment/Plan: LDL cholesterol 99 mg/dL. Start atorvastatin 20 mg daily. Code(s): E78.5 - HYPERLIPIDEMIA, UNSPECIFIED (7) ICD (implantable cardioverter-defibrillator) battery depletion Code(s): Z45.02 - ENCNTR FOR ADJUST AND MGMT OF AUTOMATIC IMPLNTBL CARD DEFIB (8) AICD (automatic cardioverter/defibrillator) present Assessment/Plan: Pt denies feeling any shocks. F/u interrogation, if not done recently. Code(s): Z95.810 - PRESENCE OF AUTOMATIC (IMPLANTABLE) CARDIAC DEFIBRILLATOR (9) Leukocytosis Assessment/Plan: denies recent fever. WBC 12.8-->8.0. Code(s): D72.829 - ELEVATED WHITE BLOOD CELL COUNT, UNSPECIFIED (10) Acute on chronic systolic CHF (congestive heart failure) Assessment/Plan: ECHO: moderately decreased LVEF. Will discontinue diltiazem. Continue metoprolol ER, valsartan, furosemide, and spironolactone. F/u Is and Os (restrict fluids; pt urinated 2 L this morning; on furosemide 40 mg IVP bid), daily wt, BUN/Cr, Replete K+. F/u ICD interrogation. Code(s): I50.23 - ACUTE ON CHRONIC SYSTOLIC (CONGESTIVE) HEART FAILURE
[2016-11-09] MEDS: POTASSIUM CHLORIDE TABS 20 MEQ TABLET.ER (FP) PO SCH ×2 (12:09→17:31)
--- NOTE | 2016-11-09 16:36 | EKG ---
Test Reason : Blood Pressure : / mmHG Vent. Rate : 090 BPM Atrial Rate : 117 BPM P-R Int : 000 ms QRS Dur : 130 ms QT Int : 412 ms P-R-T Axes : 000 -17 036 degrees QTc Int : 504 ms ATRIAL FIBRILLATION WITH PREMATURE VENTRICULAR OR ABERRANTLY CONDUCTED COMPLEXES NON-SPECIFIC INTRA-VENTRICULAR CONDUCTION BLOCK ABNORMAL ECG WHEN COMPARED WITH ECG OF 07-NOV-2016 08:03, T WAVE VARIATION VENT. RATE HAS DECREASED Confirmed by LAVELLE BUENO, FERDINAND ([id number]) on 11/09/2016 4:36:28 PM Referred By: Lisa CRUZ Confirmed By:FERDINAND VALDERRAMA MD
[2016-11-09] MEDS: RIVAROXABAN 20 MG TABLET PO SCH (17:30)
[2016-11-09] MEDS: ATORVASTATIN CA 20 MG TABLET (FP) PO SCH (21:13)
[2016-11-10] MEDS: FUROSEMIDE 40 MG/4 ML INJECTABLE VIAL IVPUSH SCH ×2 (06:01→14:06)
[2016-11-10] MEDS: metFORMIN HCL 500 MG TABLET (FP) PO SCH ×2 (06:01→17:36)
[2016-11-10] MEDS: INSULIN SLIDING SCALE (NOVOLOG) 1 VIAL SQ SCH ×4 (06:01→21:03)
[2016-11-10] MEDS: SPIRONOLACTONE 25 MG TABLET (FP) PO SCH (09:12)
[2016-11-10] MEDS: POTASSIUM CHLORIDE TABS 10 MEQ TABLET.ER (FP) PO SCH ×2 (09:13→21:02)
[2016-11-10] MEDS: VALSARTAN 160 MG TABLET (UD) PO SCH (09:13)
[2016-11-10] MEDS: METOPROLOL SUCCINATE 100 MG TAB.SR.24H (FP) PO SCH ×2 (09:13→21:02)
--- NOTE | 2016-11-10 11:02 | PN ---
Progress Note, Physician History of Present Illness: This is a 61-year-old white male with a history of atrial fibrillation (on Xarelto), hypertension, obesity, zvc-pkdlqjp-euvxsycld diabetes, and prior Vfib arrest leading to ICD implantation in 2013. He denies history of CHF, but is taking Lasix 40mg bid. He presents ambulatory to the ED with shortness of breath. He reports that he has been sick with cough and "cold" for one week. This morning, he felt acutely more short of breath at rest. He has been unable to lay flat. He denies chest pain. Vital signs on arrival are notable for RR 30, BP 188/133, HR 100, SpO2 82% on RA. - Current Medication List Current Medications: Active Medications Atorvastatin Calcium (Lipitor -) 20 mg PO HS [facility] Last Admin: 11/09/16 21:13 Dose: 20 mg Furosemide (Lasix Injection -) 40 mg IVPUSH BID@0600,1400 [facility] Last Admin: 11/10/16 06:01 Dose: 40 mg Insulin Aspart (Novolog Vial Sliding Scale -) 1 vial SQ ACHS [facility] PRN Reason: Protocol Last Admin: 11/10/16 06:01 Dose: Not Given Metformin HCl (Glucophage -) 1,000 mg PO BIDAC [facility] Last Admin: 11/10/16 06:01 Dose: 1,000 mg Metoprolol Succinate (Toprol Xl -) 100 mg PO DAILY [facility] Last Admin: 11/10/16 09:13 Dose: 100 mg Metoprolol Succinate (Toprol Xl -) 200 mg PO HS [facility] Last Admin: 11/09/16 21:14 Dose: 200 mg Potassium Chloride (K-Dur -) 10 meq PO BID [facility] Last Admin: 11/10/16 09:13 Dose: 10 meq Rivaroxaban (Xarelto -) 20 mg PO DAILY@1730 [facility] Last Admin: 11/09/16 17:30 Dose: 20 mg Spironolactone (Aldactone -) 25 mg PO DAILY [facility] Last Admin: 11/10/16 09:12 Dose: 25 mg Valsartan (Diovan -) 320 mg PO DAILY [facility] Last Admin: 11/10/16 09:13 Dose: 320 mg - Objective Vital Signs: Vital Signs Temperature 97.9 F 11/10/16 07:58 Pulse Rate 84 11/10/16 07:58 Respiratory Rate 24 11/10/16 07:58 Blood Pressure 144/82 11/10/16 07:58 O2 Sat by Pulse Oximetry (%) 98 11/10/16 09:00 Eyes: Yes: WNL, Conjunctiva Clear, EOM Intact HENT: Yes: WNL, Atraumatic, Normocephalic Neck: Yes: WNL, Supple, Trachea Midline Cardiovascular: Yes: WNL, Regular Rate and Rhythm Respiratory: Yes: WNL, Regular, CTA Bilaterally Gastrointestinal: Yes: WNL, Normal Bowel Sounds Genitourinary: Yes: WNL Musculoskeletal: Yes: WNL Extremities: Yes: WNL Edema: No Integumentary: Yes: WNL Neurological: Yes: WNL, Alert, Oriented ...Motor Strength: WNL Psychiatric: Yes: WNL Labs: CBC, BMP 11/09/16 05:35 11/09/16 05:35 INR, PTT INR 1.75 (0.82-1.09) H 11/07/16 08:20 Assessment/Plan - Problems (1) Atrial fibrillation with RVR Assessment/Plan: On diltiazem and metoprolol On Xarelto. ECHO: moderate LV dysfunction; will discontinue diltiazem. F/u HR and BP. ICD interrogation. Code(s): I48.91 - UNSPECIFIED ATRIAL FIBRILLATION (2) T2DM (type 2 diabetes mellitus) Code(s): E11.9 - TYPE 2 DIABETES MELLITUS WITHOUT COMPLICATIONS (4) Obesity Assessment/Plan: truncal obesity. The benefits of modifying diet and losing weight were discussed. Code(s): E66.9 - OBESITY, UNSPECIFIED (5) HTN (hypertension) Assessment/Plan: ECHO: moderately reduced LVEF. Stopped diltiazem; f/u HR and BP. Code(s): I10 - ESSENTIAL (PRIMARY) HYPERTENSION (6) Hyperlipidemia Assessment/Plan: LDL cholesterol 99 mg/dL. Start atorvastatin 20 mg daily. Code(s): E78.5 - HYPERLIPIDEMIA, UNSPECIFIED (7) ICD (implantable cardioverter-defibrillator) battery depletion Code(s): Z45.02 - ENCNTR FOR ADJUST AND MGMT OF AUTOMATIC IMPLNTBL CARD DEFIB (8) AICD (automatic cardioverter/defibrillator) present Assessment/Plan: Pt denies feeling any shocks. F/u interrogation, if not done recently. Code(s): Z95.810 - PRESENCE OF AUTOMATIC (IMPLANTABLE) CARDIAC DEFIBRILLATOR (9) Leukocytosis Assessment/Plan: denies recent fever. WBC 12.8-->8.0. Code(s): D72.829 - ELEVATED WHITE BLOOD CELL COUNT, UNSPECIFIED (10) Acute on chronic systolic CHF (congestive heart failure) Assessment/Plan: ECHO: moderately decreased LVEF. Will discontinue diltiazem. Continue metoprolol ER, valsartan, furosemide, and spironolactone. F/u Is and Os (restrict fluids; pt urinated 2 L this morning; on furosemide 40 mg IVP bid), daily wt, BUN/Cr, Replete K+. ICD interrogation wnl Code(s): I50.23 - ACUTE ON CHRONIC SYSTOLIC (CONGESTIVE) HEART FAILURE stable to be f/u OUTP. d/c telemetry
[2016-11-10] MEDS ORDERED: SPIRONOLACTONE 25 MG TABLET (FP) PO ONE (14:29)
[2016-11-10] MEDS ORDERED: FUROSEMIDE 40 MG/4 ML INJECTABLE VIAL IVPUSH ONE (14:30)
--- NOTE | 2016-11-10 14:32 | PN ---
Physical Exam: SUBJECTIVE: Patient seen and examined sitting on edge of bed. Feels much better. Mild episodes of SOB. OBJECTIVE: Vital Signs Period Temp Pulse Resp BP Sys/Lopez Pulse Ox Last 24 Hr 97.9 F-98.2 F 70-86 18-24 132-146/77-98 94-98 GENERAL: The patient is awake, alert, and fully oriented, in no acute distress. HEAD: Normal with no signs of trauma. EYES: PERRL, extraocular movements intact, sclera anicteric, conjunctiva clear. No ptosis. LUNGS: Breath sounds equal, clear to auscultation bilaterally, no wheezes, no crackles; on NC; no accessory muscle use HEART: Regular rate and rhythm, S1, S2 without murmur, rub or gallop. ABDOMEN: Soft, markedly obese, not tender; hypoactive bowel sounds EXTREMITIES: 3+ bilateral LE edema, skin is tense; mild venous stasis changes; very little improvement NEUROLOGICAL: Cranial nerves II through XII grossly intact. Normal speech, gait not observed; moves all extremities freely. CBCD WBC 8.0 K/mm3 (4.0-10.0) 11/09/16 05:35 RBC 4.57 M/mm3 (4.00-5.60) 11/09/16 05:35 Hgb 13.9 GM/dL (11.7-16.9) 11/09/16 05:35 Hct 41.8 % (35.4-49) 11/09/16 05:35 MCV 91.5 fl (80-96) 11/09/16 05:35 MCHC 33.2 g/dl (32.0-35.9) 11/09/16 05:35 RDW 16.3 % (11.9-15.9) H 11/09/16 05:35 Plt Count 144 K/MM3 (134-434) 11/09/16 05:35 MPV 8.6 fl (7.5-11.1) 11/09/16 05:35 CMP Sodium 145 mmol/L (136-145) 11/09/16 05:35 Potassium 3.3 mmol/L (3.5-5.1) L 11/09/16 05:35 Chloride 108 mmol/L (98-107) H 11/09/16 05:35 Carbon Dioxide 30 mmol/L (21-32) 11/09/16 05:35 Anion Gap 7 (8-16) L 11/09/16 05:35 BUN 18 mg/dL (7-18) 11/09/16 05:35 Creatinine 0.8 mg/dL (0.7-1.3) 11/09/16 05:35 Creat Clearance w eGFR > 60 (>60) 11/09/16 05:35 Calcium 8.0 mg/dL (8.5-10.1) L 11/09/16 05:35 Total Bilirubin 1.0 mg/dL (0.2-1.0) 11/09/16 05:35 AST 29 U/L (15-37) 11/09/16 05:35 ALT 45 U/L (12-78) 11/09/16 05:35 Alkaline Phosphatase 64 U/L (45-117) 11/09/16 05:35 Total Protein 6.3 g/dl (6.4-8.2) L 11/09/16 05:35 Albumin 3.6 g/dl (3.4-5.0) 11/09/16 05:35 Laboratory Results - last 24 hr 11/09/16 11/09/16 11/10/16 16:01 21:19 05:54 POC Glucometer 122 124 133 11/10/16 11:40 POC Glucometer 125 Active Medications Generic Name Dose Route Start Last Admin Trade Name Renuka PRN Reason Stop Dose Admin Atorvastatin Calcium 20 mg 11/09/16 22:00 11/09/16 21:13 Lipitor - PO 20 mg HS [facility] Administration Furosemide 80 mg 11/11/16 06:00 Lasix Injection - IVPUSH BID@0600,1400 [facility] Insulin Aspart 1 vial 11/08/16 16:30 11/10/16 14:10 Novolog Vial Sliding Scale - SQ Not Given [facility] Protocol Metformin HCl 1,000 mg 11/10/16 07:00 11/10/16 06:01 Glucophage - PO 1,000 mg BIDAC [facility] Administration Metoprolol Succinate 100 mg 11/09/16 10:00 11/10/16 09:13 Toprol Xl - PO 100 mg DAILY [facility] Administration Metoprolol Succinate 200 mg 11/08/16 22:00 11/09/16 21:14 Toprol Xl - PO 200 mg HS [facility] Administration Potassium Chloride 10 meq 11/07/16 22:00 11/10/16 09:13 K-Dur - PO 10 meq BID [facility] Administration Rivaroxaban 20 mg 11/07/16 17:30 11/09/16 17:30 Xarelto - PO 20 mg DAILY@1730 [facility] Administration Spironolactone 25 mg 11/10/16 14:29 Aldactone - PO 11/10/16 14:30 ONCE ONE Spironolactone 50 mg 11/11/16 10:00 Aldactone - PO DAILY [facility] Valsartan 320 mg 11/08/16 10:00 11/10/16 09:13 Diovan - PO 320 mg DAILY [facility] Administration ASSESSMENT/PLAN 61 year-old man with a PMH of HTN, afib on Xarelto, prior v-fib arrest s/p ICD ( 2013), diastolic heart failure, and NIDDM. Admitted for acute heart failure, afib with RVR, and hypertensive urgency. Acute on chronic systolic and diastolic heart failure --11/08 Echo: LV moderately reduced; +RWMA: moderate septal hypokinesis; moderate anterior wall hypokinesis; mild to moderate apical wall hypokinesis; RV normal; LAE; moderate to severe MR; mild TR; RVSP 35mmHg; pacemaker lead in RV --UOP tapered off yesterday, and weight leveled off; increase Lasix IV to 80mg BID and spironolactone to 50mg BID --fluid restrict 1L, daily weights, strict I&Os --monitor renal function closely Atrial fibrillation with RVR --rate is improved today, 70-80s --continue Toprol XL; diltiazem d/c'd by cardiology --continue Xarelto Hypertensive emergency, resolved Hypertension --BP better controlled --continue Valsartan, Toprol XL, Lasix IV NIDDM --continue metformin --Novolog sliding scale coverage --HgbA1C ordered F/E/N Fluids: fluid restrict 1L Electrolytes: replete as indicated Nutrition: diabetic low sodium DVT prophylaxis: on Xarelto Dispo: continues to require inpatient care. Full Code. PATIENT MUST HAVE A GLUE SPRAYER IN PLACE PRIOR TO DISCHARGE. HE REQUIRES VERY CLOSE FOLLOW UP. Visit type - Emergency Visit Emergency Visit: Yes ED Registration Date: 11/07/16 Care time: The patient presented to the Emergency Department on the above date and was hospitalized for further evaluation of their emergent condition. - New Patient This patient is new to me today: No - Critical Care Critical Care patient: No
[2016-11-10 16:31] LABS: CALCIUM 8.4 mg/dL (8.5-10.1); CREATININE 1.1 mg/dL (0.7-1.3)
[2016-11-10] MEDS: RIVAROXABAN 20 MG TABLET PO SCH (17:35)
[2016-11-10] MEDS ORDERED: INSULIN (NOVOLOG) ASPART 100 UNITS/ML 10ML VIAL ONE (20:43)
[2016-11-10] MEDS: ATORVASTATIN CA 20 MG TABLET (FP) PO SCH (21:02)
[2016-11-11] MEDS ORDERED: FUROSEMIDE 40 MG/4 ML INJECTABLE VIAL IVPUSH SCH (06:00)
[2016-11-11] MEDS: metFORMIN HCL 500 MG TABLET (FP) PO SCH (06:45)
[2016-11-11] MEDS: INSULIN SLIDING SCALE (NOVOLOG) 1 VIAL SQ SCH ×2 (06:53→11:40)
[2016-11-11 07:29] LABS: BASOPHIL 0.8 % (0-2.0); EOSINOPHIL 0.8 % (0-4.5); MCH 30.1 pg (25.7-33.7); MCHC 33.2 g/dl (32.0-35.9); MEAN CELL VOLUME 90.8 fl (80-96); MEAN PLT VOLUME 9.1 fl (7.5-11.1); NEUTROPHILS 78.2 % (42.8-82.8); PLATELET COUNT 163 K/MM3 (134-434); WHITE BLOOD COUNT 8.6 K/mm3 (4.0-10.0)
[2016-11-11 08:13] LABS: ALBUMIN 3.7 g/dl (3.4-5.0); ANION GAP 9 (8-16); CALCIUM 8.6 mg/dL (8.5-10.1); CO2 31 mmol/L (21-32); GLUCOSE,RANDOM 108 mg/dL (74-106); MAGNESIUM 2.3 mg/dL (1.8-2.4); PHOSPHOROUS 3.3 mg/dL (2.5-4.9); SGOT/AST 27 U/L (15-37); SGPT/ALT 46 U/L (12-78)
[2016-11-11 08:15] LABS: ALK PHOS 63 U/L (45-117); BILIRUBIN,TOTAL 1.2 mg/dL (0.2-1.0); TOT PROT 6.5 g/dl (6.4-8.2)
[2016-11-11] MEDS: VALSARTAN 160 MG TABLET (UD) PO SCH (09:38)
[2016-11-11] MEDS: METOPROLOL SUCCINATE 100 MG TAB.SR.24H (FP) PO SCH (09:39)
[2016-11-11] MEDS ORDERED: POTASSIUM CHLORIDE 40 MEQ/30 ML UNIT DOSE CUP PO ONE (09:45)
[2016-11-11] MEDS ORDERED: SPIRONOLACTONE 25 MG TABLET (FP) PO SCH (10:00)
[2016-11-11] MEDS ORDERED: POTASSIUM CHLORIDE 40 MEQ/30 ML UNIT DOSE CUP PO SCH (10:00)
[2016-11-11 10:08] VITALS: BP 153/100; PULSE 77; TEMP 98
--- NOTE | 2016-11-11 11:08 | DS ---
Physical Exam: SUBJECTIVE: Patient seen and examined. He states he feels better, much improved. Denies any chest pain, dyspnea. He was able to walk apx 40 feet without any dizziness or shortness of breath. He is tolerating room air. OBJECTIVE: Vital Signs Period Temp Pulse Resp BP Sys/Lopez Pulse Ox Last 24 Hr 97.4 F-98.3 F 77-95 18-22 148-160/88-101 94-97 PHYSICAL EXAM GENERAL: The patient is awake, alert, and fully oriented, in no acute distress. HEAD: Normal with no signs of trauma. EYES: PERRL, extraocular movements intact, sclera anicteric, conjunctiva clear. ENT: Ears normal, nares patent, oropharynx clear without exudates, moist mucous membranes. NECK: Trachea midline, full range of motion, supple. LUNGS: Breath sounds equal, clear lungs, diminished at the bases HEART: glassware verifier: irregular rate and rhythm 80s-90s ABDOMEN: Soft, nontender, nondistended, obese abdomen EXTREMITIES: Non pitting edema on bilateral lower extremities. NEUROLOGICAL: Normal speech, steady gait PSYCH: Normal mood, normal affect. SKIN: Warm, dry, normal turgor, no rashes or lesions noted. LABS Laboratory Results - last 24 hr 11/10/16 11/10/16 11/10/16 11:40 15:15 16:59 WBC RBC Hgb Hct MCV MCHC RDW Plt Count MPV Neutrophils % Lymphocytes % Monocytes % Eosinophils % Basophils % Sodium 143 Potassium 3.7 Chloride 105 Carbon Dioxide 31 Anion Gap 7 L BUN 24 H D Creatinine 1.1 D Creat Clearance w eGFR POC Glucometer 125 104 Random Glucose 120 H Calcium 8.4 L Phosphorus Magnesium Total Bilirubin AST ALT Alkaline Phosphatase Total Protein Albumin 11/10/16 11/11/16 11/11/16 20:57 05:35 05:35 WBC 8.6 RBC 4.80 Hgb 14.5 Hct 43.6 MCV 90.8 MCHC 33.2 RDW 16.0 H Plt Count 163 MPV 9.1 Neutrophils % 78.2 Lymphocytes % 13.2 Monocytes % 7.0 Eosinophils % 0.8 Basophils % 0.8 Sodium 146 H Potassium 3.4 L Chloride 106 Carbon Dioxide 31 Anion Gap 9 BUN 21 H Creatinine 1.0 Creat Clearance w eGFR > 60 POC Glucometer 101 Random Glucose 108 H Calcium 8.6 Phosphorus 3.3 Magnesium 2.3 Total Bilirubin 1.2 H AST 27 ALT 46 Alkaline Phosphatase 63 Total Protein 6.5 Albumin 3.7 11/11/16 06:50 WBC RBC Hgb Hct MCV MCHC RDW Plt Count MPV Neutrophils % Lymphocytes % Monocytes % Eosinophils % Basophils % Sodium Potassium Chloride Carbon Dioxide Anion Gap BUN Creatinine Creat Clearance w eGFR POC Glucometer 107 Random Glucose Calcium Phosphorus Magnesium Total Bilirubin AST ALT Alkaline Phosphatase Total Protein Albumin HOSPITAL COURSE: Date of Admission:11/07/16 Date of Discharge: 11/11/16 ASSESSMENT/PLAN: Patient is a 61 year old male with a past medical history of hypertension, atrial fib. (on Xarelto), prior V fib arrest s/p ICD on 2013, diastolic heart failure and diabetes mellitus. He was admitted on 11/07/2016 with acute on chronic systolic and diastolic heart failure, afib with RVT and hypertensive urgency. Cardiology: Acute on chronic systolic and diastolic heart failure - improved Assessment/Plan: Echo 11/08/2016: moderate mitral annular calc., mild aortic stenosis, LA mod dilated, LV systolic fx mod. reduced, Mod to severe mitral regurg., mild tricuspic regurg., R vent systolic pressure elevated 35mmhg On Lasix 80mg IVP while hospitalized with good effect, takes Lasix 40mg BID at home. Will send him home with Lasix 80mg BID and Spironolactone 50mg daily. Also on Potassium 10 MEQ BID. He should continue the fluid restriction at 1 liters and weigh himself daily. He has verbalized understanding Monitor BUN/Creatinine Needs close yarn weigher follow up, pt made appointment for of next week @ 11:30a with Dr. Martino. Atrial fibrillation with RVR - improved Assessment/Plan: Rate improved, now between 70-80s and at times in the 90s with exertion. Continue Toprol XL 100mg daily and Toprol 200mg @ HS Continue Xarelto Hypertensive Urgency - resolved Assessment/Plan: BP better controlled. To continue Diovan 320mg daily, Toprol XL and Lasix BID Endocrine: Assessment/Plan: On Metformin 1000mg BID HgbA1C: 6.7, improved when compared to previous Hgba1c Needs close follow up with PCP [facility]. Fluids: continue fluid restriction Electrolytes: monitor potassium Nutrition: diabetic, low sodium Disposition: Discharge home today. Pt spoke to Dr. Martino office and confirmed that office will take patient's new insurance. Patient made appointment for 11/18/2016 at 11:30 for follow up appt with Replacer. Minutes to complete discharge: 60 Discharge Summary Reason For Visit: ACUTE EXACERBATION OF CHF Current Active Problems AICD (automatic cardioverter/defibrillator) present (Acute) Acute exacerbation of CHF (congestive heart failure) (Acute) Acute on chronic systolic CHF (congestive heart failure) (Acute) Atrial fibrillation with RVR (Acute) Hypoxia (Acute) ICD (implantable cardioverter-defibrillator) battery depletion (Acute) Leukocytosis (Acute) Obesity (Acute) Respiratory decompensation (Acute) T2DM (type 2 diabetes mellitus) (Acute) The administrative codes within the [employer] content you are accessing may have as of 07/24/2016. Please contact your IT Dept/Help Desk and request the latest Regulatory release be installed. IT Dept/Help Desk- Please refer to our FAQ page ([email or web address] or contact [employer] Customer Support at [email or web address] (Acute) Condition: Improved - Instructions Diet, Activity, Other Instructions: Please continue the Lasix 80mg BID Weight your self daily and report an increase of 2lbs or greater to your yarn weigher. Continue the fluid restriction of 1 Liter Please follow with your Replacer. Appointment for 11/18/2015at 11: 30- a.m. Please return to the ER if you experience any of the following: Shortness of breath Chest Pain Worsening swelling of your lower extremities Difficulty walking Disposition: HOME - Home Medications Comprehensive Discharge Medication List: Ambulatory Orders Exenatide Microspheres [Bydureon] 2 mg SQ Q7D #1 vial 06/25/14 Metformin HCl [Glucophage] 1,000 mg PO BID 10/17/14 Metoprolol Succinate [Toprol XL -] 100 mg PO AM 10/17/14 Metoprolol Succinate [Toprol XL -] 200 mg PO HS 04/18/15 Rivaroxaban [Xarelto -] 20 mg PO HS 04/18/15 Magnesium Oxide 400 mg PO DAILY #90 04/20/15 Potassium Chloride [Klor-Con M10] 2 tab PO BID #100 04/20/15 Empagliflozin [Jardiance] 10 mg PO DAILY 09/04/15 Empagliflozin [Jardiance] 10 mg PO DAILY 11/07/16 Exenatide Microspheres [Bydureon] 2 mg SQ Q7D 11/07/16 Magnesium Oxide [Magnesium] 400 mg PO DAILY 11/07/16 Metformin HCl [Metformin HCl ER] 1,000 mg PO BID 11/07/16 Metoprolol Succinate [Toprol Xl] 100 mg PO BID 11/07/16 Olmesartan Medoxomil [Benicar -] 40 mg PO DAILY 11/07/16 Potassium Chloride [K-Dur -] 10 meq PO BID 11/07/16 Rivaroxaban [Xarelto -] 20 mg PO DAILY 11/07/16 Atorvastatin Ca [Lipitor] 20 mg PO HS #30 tablet 11/11/16 Furosemide Oral Solution [Lasix Oral Solution -] 80 mg PO BID #150 udc 11/11/16 Metoprolol Succinate [Toprol XL -] 100 mg PO DAILY tab.sr.24h 11/11/16 Metoprolol Succinate [Toprol XL -] 200 mg PO HS #30 tab.sr.24h 11/11/16 Potassium Chloride 10 meq PO BID #60 capsule.er 11/11/16 Spironolactone [Aldactone -] 50 mg PO DAILY #30 tablet 11/11/16 Valsartan [Diovan] 320 mg PO DAILY #30 tablet 11/11/16 This patient is new to me today: Yes Date on this admission: 11/11/16 Emergency Visit: Yes ED Registration Date: 11/07/16 Care time: The patient presented to the Emergency Department on the above date and was hospitalized for further evaluation of their emergent condition. Critical Care patient: No - Discharge Referral Referred to [facility] No Physician Referral: Ravi Pizarro MD (Int Med), Alfie Rubin MD (Int Med), Erickson Hubbard MD (Fam Med)
--- NOTE | 2016-11-11 12:14 | PN ---
Progress Note, Physician Chief Complaint: Pt walking slowly in hallway without dyspnea or chest pain. moderate decrease in bilateral leg swelling.He is trying out support stockings. History of Present Illness: This is a 61-year-old white male with a history of atrial fibrillation (on Xarelto), hypertension, obesity, rxo-amcttqz-yethgozyg diabetes, and prior Vfib arrest leading to ICD implantation in 2013. He denies history of CHF, but is taking Lasix 40mg bid. He presents ambulatory to the ED with shortness of breath. He reports that he has been sick with cough and "cold" for one week. This morning, he felt acutely more short of breath at rest. He has been unable to lay flat. He denies chest pain. Vital signs on arrival are notable for RR 30, BP 188/133, HR 100, SpO2 82% on RA. - Current Medication List Current Medications: Active Medications Atorvastatin Calcium (Lipitor -) 20 mg PO HS [facility] Last Admin: 11/10/16 21:02 Dose: 20 mg Furosemide (Lasix Injection -) 80 mg IVPUSH BID@0600,1400 [facility] Last Admin: 11/11/16 06:45 Dose: 80 mg Insulin Aspart (Novolog Vial Sliding Scale -) 1 vial SQ ACHS [facility] PRN Reason: Protocol Last Admin: 11/11/16 11:40 Dose: Not Given Metformin HCl (Glucophage -) 1,000 mg PO BIDAC [facility] Last Admin: 11/11/16 06:45 Dose: 1,000 mg Metoprolol Succinate (Toprol Xl -) 100 mg PO DAILY [facility] Last Admin: 11/11/16 09:39 Dose: 100 mg Metoprolol Succinate (Toprol Xl -) 200 mg PO HS [facility] Last Admin: 11/10/16 21:02 Dose: 200 mg Potassium Chloride (K-Dur -) 10 meq PO BID [facility] Last Admin: 11/10/16 21:02 Dose: 10 meq Rivaroxaban (Xarelto -) 20 mg PO DAILY@1730 [facility] Last Admin: 11/10/16 17:35 Dose: 20 mg Spironolactone (Aldactone -) 50 mg PO DAILY [facility] Last Admin: 11/11/16 09:38 Dose: 50 mg Valsartan (Diovan -) 320 mg PO DAILY [facility] Last Admin: 11/11/16 09:38 Dose: 320 mg - Objective Vital Signs: Vital Signs Temperature 98 F 11/11/16 09:00 Pulse Rate 77 11/11/16 09:00 Respiratory Rate 18 11/11/16 09:00 Blood Pressure 153/100 11/11/16 09:00 O2 Sat by Pulse Oximetry (%) 97 11/11/16 09:00 Constitutional: Yes: No Distress Eyes: Yes: WNL HENT: Yes: WNL Neck: Yes: WNL Cardiovascular: Yes: Pulse Irregular, S1 (varies in intensity), S2 Respiratory: Yes: Regular Gastrointestinal: Yes: Soft, Abdomen, Obese ...Rectal Exam: Yes: Deferred Genitourinary: No: Anuria Breast(s): Yes: WNL Musculoskeletal: Yes: Joint Swelling, Muscle Weakness Extremities: Yes: Cool Edema: Yes Edema: LLE: 1+, RLE: 1+ Peripheral Pulses WNL: No Peripheral Pulses: Left Doralis Pedis: 1+, Right Dorsalis Pedis: 1+ Integumentary: Yes: Venous Stasis Changes, Other (?psorisasis of shins, elbows) Neurological: Yes: Alert, Oriented Psychiatric: Yes: WNL Labs: CBC, BMP 11/11/16 05:35 11/11/16 05:35 INR, PTT INR 1.75 (0.82-1.09) H 11/07/16 08:20 - ....Imaging Chest X-ray: Image Reviewed (mild CHF (improved)) Other: Image Reviewed (telemetry: AF) Problem List - Problems (1) Atrial fibrillation with RVR Assessment/Plan: On metoprolol; HR remains well-controlled. On Xarelto. ECHO: moderate LV dysfunction; discontinued diltiazem. F/u HR and BP. ICD interrogation: AF (4) Obesity Assessment/Plan: truncal obesity. The benefits of modifying diet and losing weight were again discussed. (5) Hypertension Assessment/Plan: ECHO: moderately reduced LVEF. Stopped diltiazem; f/u HR and BP on metoprolol alone (rate remains well- controlled). Code(s): I10 - ESSENTIAL (PRIMARY) HYPERTENSION (6) Hyperlipidemia Assessment/Plan: LDL cholesterol 99 mg/dL. Started atorvastatin 20 mg daily. Code(s): E78.5 - HYPERLIPIDEMIA, UNSPECIFIED (8) AICD (automatic cardioverter/defibrillator) present Assessment/Plan: Pt denies feeling any shocks. ICD interroaged: good battery life; AF; periods of RVR; no events. (9) Leukocytosis Assessment/Plan: denies recent fever. WBC 12.8-->8.0. (10) Acute on chronic systolic CHF (congestive heart failure) Assessment/Plan: ECHO: moderately decreased LVEF. Will discontinue diltiazem. Continue metoprolol ER, valsartan, furosemide, and spironolactone. Pt for d/c home on Lasix 80 mg bid; will be modified as symtoms approve. Pt taught to keep log of daily weight, symptoms F/u BUN/Cr and electrolytes.
== END 2016-11-11 13:59 | disposition home or self-care (01) | DRG 292 ==
LOC: JER 07:46 → MERGE 09:34 → JERBED 09:34 → J4W 18:52
PROVIDERS: ADMIT Internal Medicine; ATTEND Nurse Practitioner Family
PROC: 3E0F7GC Introduction of Other Therapeutic Substance into Respiratory Tract, Via Natural or Artificial Opening (ICD-10-PCS; principal; 2016-11-07)
DX: I11.0 Hypertensive heart disease with heart failure (principal); Z68.42 Body mass index [BMI] 45.0-49.9, adult; I48.91 Unspecified atrial fibrillation; I50.23 Acute on chronic systolic (congestive) heart failure; Z79.01 Long term (current) use of anticoagulants; E66.01 Morbid (severe) obesity due to excess calories; Z71.3 Dietary counseling and surveillance; E11.9 Type 2 diabetes mellitus without complications; Z95.810 Presence of automatic (implantable) cardiac defibrillator; R09.02 Hypoxemia; I16.0 Hypertensive urgency; G47.30 Sleep apnea, unspecified; F41.9 Anxiety disorder, unspecified; D72.829 Elevated white blood cell count, unspecified
CPT/HCPCS: 36415; 71010-TC; 71020-TC; 80048; 80053; 80061; 81003; 82550; 83036; 83721; 83735; 83880; 84100; 84443; 84484; 85025; 85610; 87804; 93005; 93010; 93306-TC; 93970-TC; 94761; 97116-GP; 97162-PG; 99283-25

== ENCOUNTER 2018-03-12 11:10 | Emergency (ER) | payer OTHER ==
[2018-03-12 11:34] VITALS: BMI 48.8
[2018-03-12] MEDS ORDERED: PANTOPRAZOLE SODIUM 40 MG in SODIUM CHLORIDE 100 ML IVPB ONE (11:35)
[2018-03-12] MEDS ORDERED: SODIUM CHLORIDE 1,000 ML IV STA (11:35)
--- NOTE | 2018-03-12 11:35 | PDOC ---
History of Present Illness - General Chief Complaint: Dysphagia Stated Complaint: NOT ABLE TO SWALLOW Time Seen by Provider: 03/12/18 11:25 - History of Present Illness Initial Comments: 03/12/18 11:39 Chief complaint: Unable to swallow History of present illness: Patient has history of intermittent dysphagia for which he consulted Dr. Hayes, executive candidate developer, several months ago. An endoscopy was scheduled but never performed. For the last 3 days he has been unable to swallow any significant amount of fluid or food other than his usual medications. When he tries to drink, he experiences pain in the upper chest and immediately regurgitates. There is no pain when not attempting to drink or eat. He has been on a recent course of anti-inflammatories for gout, which has resolved. He discontinued his anti-inflammatory, which he thinks was meloxicam, 3 days ago Past medical history: Morbid obesity, atrial fibrillation with implantable pacemaker/defibrillator, [id number]-[id number] diabetes, high blood pressure, CHF, hypokalemia. Recent blood tests showed a normal potassium, and he is currently holding his potassium supplement. He did not take his furosemide today as well because he was not eating or drinking, but took his other medications as directed. Medications: Xarelto, metformin, Trulicity, furosemide, spironolactone, Diovan, metoprolol, Jardiance. Social history: Denies tobacco alcohol or nonprescription drugs. 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 Family history: Reviewed and significant for coronary artery disease, diabetes. Physical exam: Alert and oriented morbidly obese but in no acute distress, cooperative Afebrile, vital signs normal PERRLA, fundi benign, ENT clear. Mucous membranes are mildly dry Neck supple without bruit mass or nodes Chest clear to P&A CV S1 and S2 distant, regular, without murmur rub or gallop, pulses full and symmetric, pitting edema is present bilaterally in the calfs. Abdomen nondistended, bowel sounds normal. Soft without mass tenderness organomegaly No CVAT Neurological C2 to 12 intact. No focal sensory or motor deficits. Gait stable and unimpaired Skin clear, no rash, adequate turgor and wet mucous membranes Impression: Esophageal dysfunction, possible stricture, possibly aggravated by recent NSAID usage. Mild dehydration. Plan: Chemistries and intravenous fluids, contact executive candidate developer. 03/12/18 11:47 03/12/18 12:04 03/12/18 12:05 Past History - Past Medical History Allergies/Adverse Reactions: Allergies Allergy/AdvReac Type Severity Reaction Status Date / Time No Known Allergies Allergy Verified 03/12/18 13:05 Home Medications: Ambulatory Orders Rivaroxaban [Xarelto -] 20 mg PO HS 04/18/15 Empagliflozin [Jardiance] 10 mg PO DAILY 11/07/16 Metformin HCl [Metformin HCl ER] 1,000 mg PO BID 11/07/16 Metoprolol Succinate [Toprol XL -] 100 mg PO DAILY tab.sr.24h 11/11/16 Metoprolol Succinate [Toprol XL -] 200 mg PO HS #30 tab.sr.24h 11/11/16 Dulaglutide [Trulicity] 0.75 mg SQ WEEKLY 12/26/17 Furosemide 80 mg PO DAILY 12/26/17 Spironolactone [Aldactone -] 25 mg PO DAILY 12/26/17 Valsartan [Diovan] 160 mg PO BID 12/26/17 Azithromycin [Zithromax 250mg Tablets -] 250 mg PO DAILY #4 tab 03/12/18 Pantoprazole Sodium [Protonix] 40 mg PO DAILY #10 tablet. 03/12/18 Cardiac Disorders: Yes (ATRIAL FIBRILLATION) COPD: No Dementia: Yes (NIDDM) Diabetes: Yes GI Disorders: Yes (DYSPHAGIA) HTN: Yes Hypercholesterolemia: Yes - Surgical History Abdominal Surgery: Yes (HERNIA REPAIR X3) Appendectomy: Yes Cardiac Surgery: Yes (DEFIBRILLATOR,PACEMAKER) Orthopedic Surgery: Yes (KNEE SURGERIES) - Immunization History Immunization Up to Date: Yes - Suicide/Smoking/Psychosocial Hx Smoking Status: No Smoking History: Never smoked Have you smoked in the past 12 months: No Number of Cigarettes Smoked Daily: 0 If you are a former smoker, when did you quit?: 1989 'Breaking Loose' booklet given: 04/26/13 Hx Alcohol Use: No Drug/Substance Use Hx: No Substance Use Type: None Hx Substance Use Treatment: No *Physical Exam - Vital Signs Last Vital Signs Temp Pulse Resp BP Pulse Ox 99.5 F 90 18 136/89 96 03/12/18 11:19 03/12/18 11:19 03/12/18 11:19 03/12/18 11:19 03/12/18 11:19 ED Treatment Course - LABORATORY CBC & Chemistry Diagram: 03/12/18 11:47 03/12/18 11:47 Medical Decision Making - Medical Decision Making 03/12/18 13:15 Labs reveal a BUN of 19, creatinine of 1.4, sodium 137, potassium 3.8, carbon dioxide 20. There is an elevated white count, but no sign of infection. EKG reveals atrial fibrillation at a rate of 104/m. IVCD. Nonspecific ST-T wave changes. Chest x-ray reveals a new lingular infiltrate that correlates with the finding of rales on auscultation. With a white count of 17.9, this could indicate an occult pneumonia that is developing. However, the patient has no chest pain, increased shortness of breath, or productive cough. Because of the possibility of pneumonia and his difficulty swallowing, admission for intravenous antibiotics and fluids were strongly recommended. However, the patient prefers not to be admitted at this time. He feels he can tolerate and antibiotic by mouth, since he has been able to hold down his other medications. He states that he will contact his primary physician and inform her of his illness tomorrow, and contact Dr. Hayes his executive candidate developer as well. Attempt to page Dr. Hayes from the ER today resulted in contacting the on-call physician, Dr. Hollingsworth. The case was discussed with him. He suggested that the patient contact Dr. Hayes first thing in the morning and arrange further evaluation. The patient's name and phone number was sent by text to Dr. Hollingsworth, who stated he will forward them immediately to Dr. Hayes. 03/12/18 17:00 Patient may have responded to Protonix. He states for the first time in 3 days he was able to tolerate a small amount of liquid without pain and without regurgitation. He feels like he can take his medication with less difficulty. He is fully ambulatory and in no distress respiratory GI or otherwise upon discharge to follow-up tomorrow as directed. *DC/Admit/Observation/Transfer Diagnosis at time of Disposition: Esophagitis Pneumonia Qualifiers: Pneumonia type: due to unspecified organism Laterality: left Lung location: upper lobe of lung Qualified Code(s): J18.1 - Lobar pneumonia, unspecified organism - Discharge Dispostion Disposition: HOME Condition at time of disposition: Stable Decision to Admit order: No - Prescriptions Prescriptions: Azithromycin [Zithromax 250mg Tablets -] 250 mg PO DAILY #4 tab Pantoprazole Sodium [Protonix] 40 mg PO DAILY #10 tablet.dr - Referrals Referrals: Ernie Hayes MD [Staff Physician] - Call tomorrow Jenni Hoff MD [Primary Care Provider] - Call tomorrow - Patient Instructions Printed Discharge Instructions: Pneumonia-Adult, DI for Esophagitis Additional Instructions: If unable to take your medications, return to the hospital Call primary physician and executive candidate developer tomorrow and arrange to be seen immediately. If this is not possible, return to the emergency room, consider hospital admission. Your condition warrants admission, but since you prefer outpatient treatment, close an expedient follow-up is very important. - Post Discharge Activity
[2018-03-12] MEDS ORDERED: PANTOPRAZOLE SODIUM 40 MG VIAL ONE (11:51)
[2018-03-12 11:57] LABS: URINE APPEARANCE Clear; URINE BILIRUBIN 2+ (NEGATIVE); URINE GLUCOSE (UA) 3+ (NEGATIVE); URINE KETONE 2+ (NEGATIVE); URINE LEUK ESTERASE Negative (NEGATIVE); URINE NITRITE Negative (NEGATIVE); URINE UROBILINOGEN 0.2 (0.2-1.0)
[2018-03-12 11:58] LABS: URINE PROTEIN 1+ (NEGATIVE)
[2018-03-12 11:59] LABS: URINE COLOR YELLOW
[2018-03-12] MEDS ORDERED: SODIUM CHLORIDE 1,000 ML IV SCH (12:00)
[2018-03-12 12:15] LABS: BASO % 2.5 % (0-2.0); EOS % 0.1 % (0-4.5); HEMATOCRIT 48.3 % (35.4-49); HEMOGLOBIN 16.2 GM/dl (11.7-16.9); LYMPH % 4.6 % (8-40); MCH 31.6 pg (25.7-33.7); MCHC 33.6 g/dl (32.0-35.9); MEAN CELL VOLUME 93.9 fl (80-96); MEAN PLT VOLUME 9.1 fl (7.5-11.1); MONO % 8.1 % (3.8-10.2); NEUT % 84.7 % (42.8-82.8); PLATELET COUNT 168 K/MM3 (134-434); RBC 5.14 M/mm3 (4.00-5.60); RDW 13.6 % (11.9-15.9)
[2018-03-12 12:16] LABS: ALBUMIN 4.3 g/dl (3.5-5.0); ALK PHOS 49 U/L (32-92); ANION GAP 12 (8-16); BILIRUBIN,TOTAL 1.5 mg/dl (0.2-1.0); BLOOD UREA NITROGEN 19 mg/dl (7-18); CALCIUM 8.8 mg/dl (8.4-10.2); CHLORIDE 103 mmol/L (98-107); CO2 22 mmol/L (22-28); CREATININE 1.4 mg/dl (0.6-1.3); GLUCOSE,RANDOM 143 mg/dl (74-106); POTASSIUM 3.8 mmol/L (3.5-5.1); SGOT/AST 51 U/L (10-42); SGPT/ALT 73 U/L (10-40); SODIUM 137 mmol/L (136-145); TOT PROT 7.3 g/dl (6.4-8.3)
[2018-03-12 12:26] LABS: URINE MUCUS 1+
[2018-03-12] MEDS ORDERED: SODIUM CHLORIDE 0.45% 1,000 ML with POTASSIUM CHLORIDE 20 MEQ IVPB SCH (12:45)
[2018-03-12] MEDS ORDERED: CEFTRIAXONE 2,000 MG in DEXTROSE 5%-WATER - 50 ML IVPB ONE (13:27)
[2018-03-12] MEDS ORDERED: AZITHROMYCIN IVPB 500 MG in DEXTROSE 5%-WATER - 250 ML IVPB ONE (13:28)
[2018-03-12] MEDS ORDERED: AZITHROMYCIN 500 MG VIAL IVPB ONE (13:32)
[2018-03-12 16:21] VITALS: BP 100/70; PULSE 86; TEMP 99.1
--- NOTE | 2018-03-13 23:58 | EKG ---
Test Reason : Blood Pressure : / mmHG Vent. Rate : 104 BPM Atrial Rate : 101 BPM P-R Int : 000 ms QRS Dur : 122 ms QT Int : 340 ms P-R-T Axes : 000 -16 -03 degrees QTc Int : 447 ms ATRIAL FIBRILLATION WITH RAPID VENTRICULAR RESPONSE WITH PREMATURE VENTRICULAR OR ABERRANTLY CONDUCTED COMPLEXES NON-SPECIFIC INTRA-VENTRICULAR CONDUCTION DELAY NONSPECIFIC ST ABNORMALITY ABNORMAL ECG WHEN COMPARED WITH ECG OF 25-DEC-2016 09:34, VENT. RATE HAS INCREASED Confirmed by FERDINAND VALDERRAMA MD ([id number]) on 03/13/2018 11:58:08 PM Referred By: ANNE CARVER Confirmed By:FERDINAND VALDERRAMA MD
== END 2018-03-12 17:01 | disposition home or self-care (01) ==
LOC: FER 11:10
PROC: 3E03329 Introduction of Other Anti-infective into Peripheral Vein, Percutaneous Approach (ICD-10-PCS; principal; 2018-03-12)
PROC: 3E033GC Introduction of Other Therapeutic Substance into Peripheral Vein, Percutaneous Approach (ICD-10-PCS; 2018-03-12)
PROC: 3E0337Z Introduction of Electrolytic and Water Balance Substance into Peripheral Vein, Percutaneous Approach (ICD-10-PCS; 2018-03-12)
DX: J18.1 Lobar pneumonia, unspecified organism (principal); E66.01 Morbid (severe) obesity due to excess calories; Z68.42 Body mass index [BMI] 45.0-49.9, adult; I48.91 Unspecified atrial fibrillation; E11.9 Type 2 diabetes mellitus without complications; I10 Essential (primary) hypertension; I50.9 Heart failure, unspecified; Z95.0 Presence of cardiac pacemaker; Z79.01 Long term (current) use of anticoagulants
CPT/HCPCS: 36415; 71046-TC-FY; 80053; 81003; 81015; 85025; 93005; 99284-25; J7030